=== PATIENT | male | born 1960 | race Caucasian/White ===

== ENCOUNTER → 2018-04-10 | Outpatient (CLI) | payer OTHER ==
[~2018-04-10] MED LIST: RT-ALBUTEROL SULF 2.5 MG/3 ML PRE-MIX VIAL INH ONE
--- NOTE | 2018-04-10 12:50 | Diagnostic Imaging Report ---
PROCEDURE: CT chest without contrast. TECHNIQUE: Multiple contiguous axial images were obtained through the chest without the use of intravenous contrast. INDICATION: Shortness of breath. COMPARISON: Study compared to 09/11/2015. FINDING: Air trapping in a symmetrical fashion with features likely owing to COPD are stable chronic findings. There is no bronchiectasis. No blebs, bullous disease or parenchymal cysts. No lung mass or focal infiltrate. There is no pneumonia. No evidence for adenopathy at this noncontrasted exam. No pleural or pericardial effusion. There is nonaneurysmal aortic atherosclerotic calcifications with mild left-sided coronary arterial atherosclerotic plaque. Upper abdomen where visualized, nonacute. The osseous structures are nonacute. IMPRESSION: Chronic emphysematous hyperexpansion of the lungs. No mass, infiltrate or acute pathology. Dictated by: Dictated on workstation # [id number]
== END ==
LOC: RAD 12:18
PROVIDERS: ATTEND Nurse Practitioner Family
DX: J43.9 Emphysema, unspecified (principal); G47.33 Obstructive sleep apnea (adult) (pediatric); Z72.0 Tobacco use
CPT/HCPCS: 71250; 94060; 94726; 94729

== ENCOUNTER → 2018-06-12 | Outpatient (CLI) | payer OTHER | LOC: CARD 08:57 | PROVIDERS: ATTEND Internal Medicine Cardiovascular Disease | DX: I25.10 Atherosclerotic heart disease of native coronary artery without angina pectoris (principal); E78.2 Mixed hyperlipidemia; J43.9 Emphysema, unspecified; R06.00 Dyspnea, unspecified; Z72.0 Tobacco use; I35.0 Nonrheumatic aortic (valve) stenosis | CPT/HCPCS: 93306 ==

== ENCOUNTER → 2018-06-15 | Outpatient (CLI) | payer OTHER ==
[~2018-06-15] MED LIST changes: +CATHETER FLUSH 10 ML SYR IV PRN; -RT-ALBUTEROL SULF 2.5 MG/3 ML PRE-MIX VIAL INH ONE
[2018-06-15 09:40] VITALS: BP 166/74
[2018-06-15 09:45] VITALS: BP 186/86
[2018-06-15 09:49] VITALS: BP 249/103
[2018-06-15 09:50] VITALS: BP 216/78
[2018-06-15 09:52] VITALS: BP 216/78
--- NOTE | 2018-06-16 08:01 | STRESS TEST ---
DATE OF SERVICE: 06/15/2018 EXERCISE MYOVIEW STRESS TEST REPORT INDICATION: Coronary artery disease. REFERRING PHYSICIAN: Dr. Shabana العراقي. Baseline heart rate is 76. Baseline blood pressure is 164/78. Baseline EKG is sinus rhythm with no ischemic changes. In summary, the patient was injected with 10.35 mCi of technetium-99 Myoview and the resting images were obtained. Then, the patient started exercising with a baseline heart rate, blood pressure and EKG mentioned above. The patient was able to exercise for a total of 7 minutes on standard Alvin protocol. She was given a stress dose of 27.8 mCi of technetium-99 Myoview. With the peak stress level, there were minimal nondiagnostic EKG changes. During recovery, heart rate and blood pressure returned to baseline. EKG returned to baseline. Peak blood pressure was 249/103. The resting and stress images were reviewed and compared in the short axis, horizontal long axis and vertical long axis views. Review of the images showed mild decreased uptake involving the mid to apical inferior wall with mild reversibility. SSS is 3, SDS 1 and TID value 1.04. On the gated images, the left ventricle appeared to be normal size with normal contractility. Calculated ejection fraction is 60%. CONCLUSION: 1. Fair exercise tolerance, a total of 7 minutes on standard Alvin protocol, total of 8.5 METS achieving 90% of maximum expected heart rate. 2. Hypertensive response to exercise, returned to baseline during recovery. 3. Mild decreased uptake at the mid to apical inferior wall with subtle reversibility. 4. Normal left ventricular size with normal contractility. Calculated ejection fraction is 60%. Job ID: [id number] DocumentID: [id number] Dictated Date: 06/16/2018 07:45:34 Accident Report Clerk Date: 06/16/2018 08:00:14 Dictated By: KANG JEAN BAPTISTE MD
== END ==
LOC: CARD 07:08
PROVIDERS: ATTEND Internal Medicine Cardiovascular Disease
DX: I25.10 Atherosclerotic heart disease of native coronary artery without angina pectoris (principal); E78.2 Mixed hyperlipidemia; R06.00 Dyspnea, unspecified; J43.9 Emphysema, unspecified; Z72.0 Tobacco use
CPT/HCPCS: 78452; 93017

== ENCOUNTER 2018-07-01 10:36 | Day surgery (SDC) | payer OTHER ==
[2018-07-01] VITALS (11 sets, daily range): BP systolic 118–153; BP diastolic 63–85
[~2018-07-01] VITALS: Ht 177.8 cm; Wt 86.2 kg
--- OUTSIDE RECORDS SUMMARY | 2018-07-01 10:42 | XMS REPORT ---
Author Shabana Bartlett [facility] Address [address] [place] [id number] Care Team Providers Care Software Application Tester Name Role Phone Shabana العراقي PCP Arely Meng PreferredProvider Allergies and Adverse Reactions Name Reaction Notes NO KNOWN DRUG ALLERGIES Plan of Treatment Planned Activity Comments Planned Date Planned Time Plan/Goal Fasting blood glucose measurement 01/29/2016 12:00 AM Bilateral duplex scan of carotid arteries 07/26/2016 12:00 AM Complete blood count (CBC) with differential count 02/18/2017 12:00 AM Comprehensive metabolic panel 02/18/2017 12:00 AM Lipid Blood Profile 02/18/2017 12:00 AM Hemoglobin A1c measurement 02/18/2017 12:00 AM Thyroid stimulating hormone (TSH) measurement 02/18/2017 12:00 AM US RETROPERITONEAL LTD 12/09/2017 12:00 AM US CAROTID DUPLEX COMP/SUSHILA 12/09/2017 12:00 AM Lexiscan Cardiolite 12/09/2017 12:00 AM Medications Active Name Start Date Estimated Completion Date SIG Comments lisinopril-hydrochlorothiazide 20-25 mg oral tablet 08/05/2014 TAKE ONE TABLET BY MOUTH ONCE DAILY simvastatin 80 mg oral tablet 08/08/2014 TAKE ONE TABLET BY MOUTH AT BEDTIME amlodipine 5 mg oral tablet 11/07/2014 TAKE ONE TABLET BY MOUTH EVERY DAY simvastatin 80 mg oral tablet 11/07/2014 TAKE ONE TABLET BY MOUTH AT BEDTIME lisinopril-hydrochlorothiazide 20-25 mg oral tablet 12/07/2014 TAKE ONE TABLET BY MOUTH ONCE DAILY Advair Diskus 250-50 mcg/dose inhalation blister with device 01/10/2015 INHALE ONE DOSE BY MOUTH IN THE MORNING AND ONE IN THE EVENING APPROXIMATELY 12 HOURS APART simvastatin 80 mg oral tablet 05/09/2015 TAKE ONE TABLET BY MOUTH AT BEDTIME lisinopril-hydrochlorothiazide 20-25 mg oral tablet 06/09/2015 TAKE ONE TABLET BY MOUTH ONCE DAILY lisinopril-hydrochlorothiazide 20-25 mg oral tablet 09/11/2015 TAKE ONE TABLET BY MOUTH ONCE DAILY Spiriva Respimat 2.5 mcg/actuation inhalation mist inhale 2 puffs (5 mcg ) by inhalation route once daily at the same time each day Ventolin HFA 90 mcg/actuation inhalation HFA aerosol inhaler Flonase Allergy Relief 50 mcg/actuation nasal spray,suspension inhale 1 spray (50 mcg) in each nostril by intranasal route once daily Advair Diskus 250-50 mcg/dose inhalation blister with device 01/17/2016 INHALE ONE DOSE BY MOUTH IN THE MORNING AND ONE IN THE EVENING APPROXIMATELY 12 HOURS APART potassium chloride 10 mEq oral tablet extended release 08/07/2016 TAKE TWO TABLETS BY MOUTH ONCE DAILY WITH FOOD Advair Diskus 250-50 mcg/dose inhalation blister with device 12/09/20172017 INHALE ONE DOSE BY MOUTH IN THE MORNING AND ONE IN THE EVENING APPROXIMATELY 12 HOURS APART for 30 days amlodipine 5 mg oral tablet 12/09/2017 03/09/2018 TAKE ONE TABLET BY MOUTH ONCE DAILY clopidogrel 75 mg oral tablet 12/09/2017 06/07/2018 TAKE ONE TABLET BY MOUTH ONCE DAILY for 90 days lisinopril-hydrochlorothiazide 20-25 mg oral tablet 12/09/2017 12/04/2018 TAKE ONE TABLET BY MOUTH ONCE DAILY potassium chloride 10 mEq oral tablet extended release 12/09/2017 12/04/2018 TAKE TWO TABLETS BY MOUTH ONCE DAILY WITH FOOD simvastatin 80 mg oral tablet 12/09/2017 12/04/2018 TAKE ONE TABLET BY MOUTH AT BEDTIME Name Start Date Expiration Date SIG Comments Advair Diskus 250-50 mcg/dose inhalation blister with device 03/16/201204/15 INHALE ONE DOSE BY MOUTH TWICE DAILY IN THE MORNING AND EVENING APPROXIMATELY 12 HOURS APART lisinopril-hydrochlorothiazide 20-25 mg oral tablet 09/14/2012 10/14/2012 TAKE ONE TABLET BY MOUTH EVERY DAY Klor-Con M10 10 mEq oral tablet,ER particles/crystals 10/25/2013 10/20/2014 TAKE TWO TABLETS BY MOUTH EVERY DAY WITH FOOD lisinopril-hydrochlorothiazide 20-25 mg oral tablet 11/08/2013 11/03/2014 TAKE ONE TABLET BY MOUTH EVERY DAY simvastatin 80 mg oral tablet 11/12/2013 11/07/2014 TAKE ONE TABLET BY MOUTH AT BEDTIME for 30 days amlodipine 5 mg oral tablet 08/05/2014 11/03/2014 TAKE ONE TABLET BY MOUTH EVERY DAY Advair Diskus 250-50 mcg/dose inhalation blister with device 08/05/20142014 INHALE ONE DOSE BY MOUTH TWICE DAILY IN THE MORNING AND EVENING APPROXIMATELY 12 HOURS APART amlodipine 5 mg oral tablet 01/17/2016 07/15/2016 TAKE ONE TABLET BY MOUTH EVERY DAY for 90 days Klor-Con M10 10 mEq oral tablet,ER particles/crystals 01/17/2016 01/11/2017 TAKE TWO TABLETS BY MOUTH ONCE DAILY WITH FOOD for 90 days montelukast 10 mg oral tablet 08/07/2017 12/05/2017 take 1 tablet (10 mg) by oral route once daily in the evening for 30 days Discontinued Name Start Date Discontinued Date SIG Comments Augmentin 875-125 mg oral tablet 07/11/2010 08/10/2010 take 1 tablet by oral route every 12 hours Voltaren 1 % topical gel 08/10/2010 07/27/2013 apply 4 gram to affected area(s ) by topical route 4 times per day albuterol sulfate 90 mcg/actuation inhalation HFA aerosol inhaler 02/19/2011 07/27/2013 inhale 1 - 2 puffs by inhalation route every 4 hours as needed aspirin 81 mg oral tablet,delayed release (DR/EC) 07/27/2013 02/18/2017 take 1 tablet (81 mg) by oral route once daily Cialis 20 mg oral tablet 07/27/2013 09/08/2014 take 1 tablet (20 mg) by oral route once daily Problem List Description Status Onset Erectile Dysfunction Active 02/02/10 Hyperlipidemia Active Hypertension, Benign Essential Active Chronic Obstructive Pulmonary Disease Active 02/19/2011 Obstructive Sleep Apnea Active 07/27/2013 Vital Signs Date Time BP-Sys(mm[Hg] BP-Kristy(mm[Hg]) HR(bpm) RR(rpm) Temp WT HT HC BMI BSA BMI Percentile O2 Sat(%) 12/09/2017 3:14:00 PM 128 mmHg 72 mmHg 82 bpm 16 rpm 98.4 F 189.125 lbs 70 in 27.1363 kg/m 2.0584 m 96 % 08/21/2017 4:10:00 PM 124 mmHg 70 mmHg 78 bpm 16 rpm 98.4 F 183.5 lbs 70 in 26.33 kg/m2 2.03 m2 94 % 07/09/2017 3:59:00 PM 130 mmHg 70 mmHg 83 bpm 16 rpm 97.2 F 185 lbs 70 in 26.54 kg/m2 2.04 m2 95 % 02/18/2017 3:59:00 PM 124 mmHg 84 mmHg 88 bpm 16 rpm 98.3 F 186.5 lbs 70 in 26.7597 kg/m 2.044 m 95 % 08/19/2016 3:58:00 PM 128 mmHg 60 mmHg 85 bpm 16 rpm 99.9 F 188.5 lbs 70 in 27.05 kg/m2 2.05 m2 95 % 07/24/2016 1:26:00 PM 124 mmHg 66 mmHg 78 bpm 18 rpm 97.8 F 188.375 lbs 70 in 27.0287 kg/m 2.0543 m 97 % 01/17/2016 3:39:00 PM 136 mmHg 82 mmHg 80 bpm 18 rpm 98.6 F 168 lbs 70 in 24.11 kg/m2 1.94 m2 96 % 08/11/2015 9:23:00 AM 139 mmHg 82 mmHg 71 bpm 18 rpm 97.6 F 178.5 lbs 70 in 25.6118 kg/m 1.9997 m 97 % 04/13/2015 3:22:00 PM 118 mmHg 70 mmHg 72 bpm 98.4 F 179.375 lbs 70 in 25.74 kg/m2 2.00 m2 98 % 09/08/2014 3:47:00 PM 130 mmHg 72 mmHg 76 bpm 98.1 F 177.5 lbs 70 in 25.4683 kg/m 1.9941 m 97 % 02/23/2014 11:33:00 AM 125 mmHg 70 mmHg 80 bpm 18 rpm 97.7 F 181 lbs 70 in 25.97 kg/m2 2.01 m2 98 % 07/27/2013 2:48:00 PM 130 mmHg 72 mmHg 88 bpm 20 rpm 97.9 F 183.4 lbs 70 in 26.3149 kg/m 2.027 m 98 % 02/10/2013 3:59:00 PM 158 mmHg 100 mmHg 87 bpm 16 rpm 97.6 F 187.375 lbs 70 in 26.89 kg/m2 2.05 m2 97 % 12/03/2011 3:08:00 PM 152 mmHg 82 mmHg 12/03/2011 2:57:00 PM 144 mmHg 100 mmHg 88 bpm 16 rpm 98.3 F 200.25 lbs 98 % 02/19/2011 8:42:00 AM 148 mmHg 82 mmHg 78 bpm 16 rpm 97.3 F 205.375 lbs 98 % 02/07/2011 3:33:00 PM 140 mmHg 72 mmHg 87 bpm 16 rpm 97.3 F 207 lbs 70 in 29.7011 kg/m 2.1534 m 97 % 08/10/2010 3:53:00 PM 122 mmHg 70 mmHg 75 bpm 16 rpm 98 F 199.5 lbs 70 in 28.62 kg/m2 2.11 m2 97 % 02/02/2010 4:03:00 PM 130 mmHg 70 mmHg 70 bpm 16 rpm 97.5 F 194.375 lbs 70 in 27.8896 kg/m 2.0867 m 97 % 07/25/2009 4:21:00 PM 120 mmHg 70 mmHg 81 bpm 16 rpm 97.2 F 199.375 lbs 70 in 28.61 kg/m2 2.11 m2 97 % Social History Name Description Comments Tobacco Current every day smoker denies alcohol use Denies illicit substance abuse Smoker 1 1/2 pk / day History of Procedures Date Ordered Description Order Status 04/10/2015 12:00 AM COMPLETE CBC W/AUTO DIFF WBC Reviewed 04/10/2015 12:00 AM COMPREHEN METABOLIC PANEL Reviewed 04/10/2015 12:00 AM LIPID PANEL Reviewed 02/07/2011 12:00 AM COMPREHEN METABOLIC PANEL Reviewed 02/07/2011 12:00 AM LIPID PANEL Reviewed 02/07/2011 12:00 AM Prostate Cancer Screening PSA Reviewed 02/19/2011 12:00 AM IMMUNIZATION ADMIN Reviewed 02/19/2011 12:00 AM PNEUMOCOCCAL VACC 23 KAREN IM Reviewed 08/11/2015 9:41 AM URINALYSIS AUTO W/O SCOPE Reviewed 05/28/2011 12:00 AM COMPLETE CBC W/AUTO DIFF WBC Reviewed 05/28/2011 12:00 AM COMPREHEN METABOLIC PANEL Reviewed 05/28/2011 12:00 AM LIPID PANEL Reviewed 01/29/2016 12:00 AM GLYCOSYLATED HEMOGLOBIN TEST Returned 01/17/2016 12:00 AM COMPLETE CBC W/AUTO DIFF WBC Returned 01/17/2016 12:00 AM COMPREHEN METABOLIC PANEL Returned 01/17/2016 12:00 AM LIPID PANEL Returned 07/24/2016 2:39 PM URINALYSIS AUTO W/O SCOPE Reviewed 07/26/2016 12:00 AM URNLS DIP STICK/TABLET REAGENT AUTO MICROSCOPY Returned 07/26/2016 12:00 AM COMPREHEN METABOLIC PANEL Returned 07/26/2016 12:00 AM COMPLETE CBC W/AUTO DIFF WBC Returned 07/26/2016 12:00 AM LIPID PANEL Returned 11/26/2011 12:00 AM COMPLETE CBC W/AUTO DIFF WBC Reviewed 11/26/2011 12:00 AM COMPREHEN METABOLIC PANEL Reviewed 11/26/2011 12:00 AM LIPID PANEL Reviewed 12/03/2011 12:00 AM COMPREHEN METABOLIC PANEL Reviewed 12/03/2011 12:00 AM LIPID PANEL Reviewed 12/03/2011 12:00 AM COMPLETE CBC W/AUTO DIFF WBC Reviewed 12/03/2011 12:00 AM Prostate Cancer Screening PSA Reviewed 01/25/2010 12:00 AM COMPREHEN METABOLIC PANEL Reviewed 01/25/2010 12:00 AM LIPID PANEL Reviewed 07/21/2017 3:53 PM URINALYSIS AUTO W/O SCOPE Reviewed 07/09/2017 12:00 AM DOT Physical w UA Reviewed 02/10/2013 12:00 AM CHEST X-RAY 2VW FRONTAL&LATL Reviewed 08/03/2010 12:00 AM COMPREHEN METABOLIC PANEL Reviewed 08/03/2010 12:00 AM LIPID PANEL Reviewed 08/03/2010 12:00 AM Prostate Cancer Screening PSA Reviewed 02/18/2014 12:00 AM COMPLETE CBC W/AUTO DIFF WBC Reviewed 02/18/2014 12:00 AM COMPREHEN METABOLIC PANEL Reviewed 02/18/2014 12:00 AM LIPID PANEL Reviewed 02/09/2011 12:00 AM COMPREHEN METABOLIC PANEL Reviewed 02/09/2011 12:00 AM LIPID PANEL Reviewed Results Summary Date and Description Results 05/09/2008 12:00 AM PSA SerPl-mCnc 1.30 ng/mL 07/15/2009 12:00 AM Cholest Cry Stone Ql IR 113.0 %LDLc SerPl-mCnc 31.0 mg/ dLHDLc SerPl-mCnc 31.0 mg/dLTrigl SerPl-mCnc 84.0 mg/dLGlucose SerPl-mCnc 114.0 mg/dLHIV1+2 Ab Ser Ql no risk Depression Done Aspirin reccommended Reccommended Cholest Cry Stone Ql IR 113.0 %LDLc SerPl-mCnc 62.0 mg/dLGlucose SerPl-mCnc 114.0 mg/dL 07/25/2009 4:33 PM HIV1+2 Ab Ser Ql no risk Depression Done 07/25/2009 4:34 PM Colonoscopy-Women and Men over 50 Declined Digital Rectal Exam Refused 01/17/2010 12:00 AM Cholest Cry Stone Ql IR 108.0 %LDLc SerPl-mCnc 58.0 mg/ dLGlucose SerPl-mCnc 114.0 mg/dL 01/17/2010 6:00 AM TRIGLYCERIDES 105.0 mg/dLCHOLESTEROL 108.0 mg/dLHDL 29.0 mg/ dLTOT CHOL/HDL 3.7 LDL (CALC) 58.0 mg/dLGLUCOSE 114.0 mg/dLSODIUM 141.0 mmol/ LPOTASSIUM 4.20 mmol/LCHLORIDE 106.0 mmol/LCO2 27.0 mmol/LBUN 19.0 mg/ dLCREATININE 1.20 mg/dLSGOT/AST 19.0 IU/LSGPT/ALT 20.0 IU/LALK PHOS 125.0 IU/ LTOTAL PROTEIN 7.10 g/dLALBUMIN 4.10 g/dLTOTAL BILI 0.30 mg/dLCALCIUM 9.60 mg/ dLAGE 50 GFR NonAA 64 GFR AA 78 eGFR >60 mL/min/1.73 m2eGFR AA* >60 02/02/2010 4:23 PM PSA SerPl-mCnc 0.0 ng/mL 08/04/2010 12:00 AM Cholest Cry Stone Ql IR 121.0 %LDLc SerPl-mCnc 68.0 mg/ dLGlucose SerPl-mCnc 107.0 mg/dL 08/04/2010 8:10 AM TRIGLYCERIDES 105.0 mg/dLCHOLESTEROL 121.0 mg/dLHDL 32.0 mg/ dLTOT CHOL/HDL 3.8 LDL (CALC) 68.0 mg/dLPSA TOTAL 1.660 ng/mLGLUCOSE 107.0 mg/ dLSODIUM 141.0 mmol/LPOTASSIUM 4.0 mmol/LCHLORIDE 104.0 mmol/LCO2 29.0 mmol/ LBUN 19.0 mg/dLCREATININE 1.10 mg/dLSGOT/AST 19.0 IU/LSGPT/ALT 20.0 IU/LALK PHOS 117.0 IU/LTOTAL PROTEIN 7.20 g/dLALBUMIN 4.30 g/dLTOTAL BILI 0.50 mg/ dLCALCIUM 9.90 mg/dLAGE 50 GFR NonAA 71 GFR AA 86 eGFR >60 mL/min/1.73 m2eGFR AA * >60 08/10/2010 3:57 PM Abdominal Aortic Aneurysm Refused 08/10/2010 3:58 PM Colonoscopy-Women and Men over 50 ordered 08/10/2010 3:58 PM Digital Rectal Exam Refused 02/02/2011 9:05 AM TRIGLYCERIDES 106.0 mg/dLCHOLESTEROL 137.0 mg/dLHDL 31.0 mg/ dLTOT CHOL/HDL 4.4 LDL (CALC) 85.0 mg/dL 05/29/2011 10:45 AM WBC 6.5 RBC 5.12 HGB 16.20 g/dLHCT 46.70 %MCV 91.0 fLMCH 31.60 pgMCHC 34.70 g/dLRDW SD 44 RDW CV 13.0 %MPV 9.90 fLPLT 219 NRBC# 0.00 NRBC % 0.0 %NEUT 59.0 %%LYMP 31.10 %%MONO 4.80 %%EOS 4.80 %%BASO 0.30 %#NEUT 3.85 # LYMP 2.03 #MONO 0.31 #EOS 0.31 #BASO 0.02 MANUAL DIFF NOT IND GLUCOSE 95.0 mg/ dLSODIUM 140.0 mmol/LPOTASSIUM 4.30 mmol/LCHLORIDE 105.0 mmol/LCO2 28.0 mmol/ LBUN 22.0 mg/dLCREATININE 1.10 mg/dLSGOT/AST 26.0 IU/LSGPT/ALT 46.0 IU/LALK PHOS 122.0 IU/LTOTAL PROTEIN 7.30 g/dLALBUMIN 4.60 g/dLTOTAL BILI 0.50 mg/ dLCALCIUM 9.80 mg/dLAGE 50 GFR NonAA 71 GFR AA 86 eGFR >60 mL/min/1.73 m2eGFR AA * >60 TRIGLYCERIDES 164.0 mg/dLCHOLESTEROL 125.0 mg/dLHDL 26.0 mg/dLTOT CHOL/ HDL 4.8 LDL (CALC) 66.0 mg/dL 11/26/2011 8:25 AM WBC 6.4 RBC 4.95 HGB 15.70 g/dLHCT 44.80 %MCV 91.0 fLH 31.70 pgMCHC 35.0 g/dLRDW SD 43 RDW CV 13.10 %MPV 9.70 fLPLT 209 NRBC# 0.00 NRBC % 0.0 %NEUT 65.50 %%LYMP 23.50 %%MONO 5.0 %%EOS 5.50 %%BASO 0.50 %#NEUT 4.18 # LYMP 1.50 #MONO 0.32 #EOS 0.35 #BASO 0.03 MANUAL DIFF NOT IND GLUCOSE 115.0 mg/ dLSODIUM 141.0 mmol/LPOTASSIUM 4.10 mmol/LCHLORIDE 108.0 mmol/LCO2 26.0 mmol/ LBUN 20.0 mg/dLCREATININE 1.20 mg/dLSGOT/AST 21.0 IU/LSGPT/ALT 31.0 IU/LALK PHOS 127.0 IU/LTOTAL PROTEIN 7.0 g/dLALBUMIN 4.40 g/dLTOTAL BILI 0.40 mg/ dLCALCIUM 9.80 mg/dLAGE 51 GFR NonAA 64 GFR AA 78 eGFR 60 eGFR AA* 60 TRIGLYCERIDES 62.0 mg/dLCHOLESTEROL 108.0 mg/dLHDL 31.0 mg/dLTOT CHOL/HDL 3.5 LDL (CALC) 65.0 mg/dL 02/07/2013 5:55 AM WBC 8.3 RBC 4.61 HGB 14.50 g/dLHCT 42.30 %MCV 92.0 fLMCH 31.50 pgMCHC 34.30 g/dLRDW SD 45 RDW CV 13.60 %MPV 9.30 fLPLT 222 NRBC# 0.00 NRBC% 0.0 %NEUT 66.80 %%LYMP 20.40 %%MONO 6.90 %%EOS 5.30 %%BASO 0.60 %#NEUT 5.52 #LYMP 1.69 #MONO 0.57 #EOS 0.44 #BASO 0.05 MANUAL DIFF NOT IND GLUCOSE 118.0 mg/dLSODIUM 146.0 mmol/LPOTASSIUM 3.90 mmol/LCHLORIDE 113.0 mmol/LCO2 24.0 mmol/LBUN 19.0 mg/dLCREATININE 1.10 mg/dLSGOT/AST 21.0 IU/LSGPT/ALT 18.0 IU /LALK PHOS 153.0 IU/LTOTAL PROTEIN 6.90 g/dLALBUMIN 4.0 g/dLTOTAL BILI 0.20 mg/ dLCALCIUM 10.10 mg/dLAGE 52 GFR NonAA 70 GFR AA 85 eGFR >60 mL/min/1.73 m2eGFR AA* >60 TRIGLYCERIDES 155.0 mg/dLCHOLESTEROL 109.0 mg/dLHDL 33.0 mg/dLTOT CHOL/ HDL 3.3 LDL (CALC) 45.0 mg/dLPSA TOTAL 2.460 ng/mL 03/02/2014 8:25 AM WBC 7.2 RBC 4.68 HGB 15.40 g/dLHCT 43.90 %MCV 94.0 fLMCH 32.90 pgMCHC 35.10 g/dLRDW SD 48 MPV 8.30 fLPLT 281 %NEUT 66.30 %%LYMP 27.10 %% MIXED 6.60 #NEUT 4.70 #LYMP 2.00 #MIXED 0.50 MANUAL DIFF NOT IND GLUCOSE 118.0 mg/dLSODIUM 140.0 mmol/LPOTASSIUM 4.0 mmol/LCHLORIDE 105.0 mmol/LCO2 26.0 mmol/ LBUN 18.0 mg/dLCREATININE 1.10 mg/dLSGOT/AST 30.0 IU/LSGPT/ALT 29.0 IU/LALK PHOS 110.0 IU/LTOTAL PROTEIN 7.70 g/dLALBUMIN 4.30 g/dLTOTAL BILI 0.40 mg/ dLCALCIUM 10.30 mg/dLAGE 53 GFR NonAA 70 GFR AA 85 eGFR 60 eGFR AA* 60 TRIGLYCERIDES 65.0 mg/dLCHOLESTEROL 118.0 mg/dLHDL 40.0 mg/dLTOT CHOL/HDL 3.0 LDL (CALC) 65.0 mg/dL 04/11/2015 5:15 AM GLUCOSE 114.0 mg/dLSODIUM 139.0 mmol/LPOTASSIUM 3.40 mmol/ LCHLORIDE 103.0 mmol/LCO2 26.0 mmol/LBUN 20.0 mg/dLCREATININE 1.10 mg/dLSGOT/ AST 31.0 IU/LSGPT/ALT 27.0 IU/LALK PHOS 122.0 IU/LTOTAL PROTEIN 7.0 g/dLALBUMIN 4.10 g/dLTOTAL BILI 0.30 mg/dLCALCIUM 9.80 mg/dLAGE 54 GFR NonAA 69 GFR AA 84 eGFR >60 mL/min/1.73meGFR AA* >60 WBC 8.6 RBC 4.70 HGB 15.0 g/dLHCT 44.10 % MCV 94.0 fLMCH 31.90 pgMCHC 34.0 g/dLRDW SD 46 RDW CV 13.30 %MPV 9.30 fLPLT 246 NRBC# 0.00 NRBC% 0.0 %NEUT 69.80 %%LYMP 18.10 %%MONO 8.20 %%EOS 3.70 %%BASO 0.20 %#NEUT 6.01 #LYMP 1.56 #MONO 0.71 #EOS 0.32 #BASO 0.02 MANUAL DIFF NOT IND TRIGLYCERIDES 81.0 mg/dLCHOLESTEROL 98.0 mg/dLHDL 29.0 mg/dLTOT CHOL/HDL 3.4 LDL (CALC) 53.0 mg/dL 08/11/2015 9:41 AM Clarity Ur CLEAR Color Ur YELLOW Glucose Ur-sCnc NEGATIVE Bilirub Ur Ql Strip NEGATIVE Ketones Ur Ql Strip NEGATIVE Sp Gr Ur Qn 1.015 Hgb Ur Ql Strip NEGATIVE pH Ur-LsCnc 6.5 Prot Ur Ql Strip NEGATIVE Urobilinogen Ur- mCnc 0.2 Nitrite Ur Ql Strip NEGATIVE WBC Est Ur Ql Strip NEGATI VE 07/24/2016 2:39 PM Clarity Ur clear Color Ur light yellow Glucose Ur-sCnc neg Bilirub Ur Ql Strip neg Ketones Ur Ql Strip neg Sp Gr Ur Qn 1.020 Hgb Ur Ql Strip neg pH Ur-LsCnc 5.5 Prot Ur Ql Strip 30mg/dl Urobilinogen Ur-mCnc 0.2eu/ dl Nitrite Ur Ql Strip neg WBC Est Ur Ql Strip small 07/09/2017 3:53 PM Urine-Color yellow Glucose Ur-sCnc neg Sp Gr Ur Qn 1.030 Hgb Ur Ql Strip neg Prot Ur Ql Strip neg History Of Immunizations Name Date Admin Mfg Name Mfg Code Trade Name Lot# Route Inj Vis Given Vis Pub CVX Pneumococcal 02/19/2011 [employer] MSD PNEUMOVAX 23 [id number] Intramuscular Left Deltoid 02/19/2011 08/11/2009 133 History of Past Illness Name Date of Onset Comments Hypertension, Benign Essential Hyperlipidemia Erectile Dysfunction 02/02/10 Benign Essential Hypertension Jul 25 2009 4:40PM Hyperlipidemia Jul 25 2009 4:40PM Chronic Obstructive Pulmonary Disease 02/19/2011 Obstructive Sleep Apnea 07/27/2013 Hyperlipidemia Feb 02 2010 3:59PM Hypertension, Benign Essential Feb 02 2010 3:59PM Erectile dysfunction Feb 02 2010 3:59PM Prostate screening Feb 02 2010 3:59PM Hyperlipidemia Aug 10 2010 3:55PM Hypertension, Benign Essential Aug 10 2010 3:55PM Erectile dysfunction Aug 10 2010 3:55PM Prostate screening Aug 10 2010 3:55PM Hyperlipidemia Feb 07 2011 3:31PM Hypertension, Benign Essential Feb 07 2011 3:31PM Erectile dysfunction Feb 07 2011 3:31PM Prostate screening Feb 07 2011 3:31PM Shortness Of Breath Feb 07 2011 3:31PM Hyperlipidemia Feb 19 2011 8:39AM Hypertension, Benign Essential Feb 19 2011 8:39AM Erectile dysfunction Feb 19 2011 8:39AM Prostate screening Feb 19 2011 8:39AM Shortness Of Breath Feb 19 2011 8:39AM Pneumococcus Feb 19 2011 9:37AM Chronic Obstructive Pulmonary Disease Feb 19 2011 8:39AM Hypertension May 28 2011 10:11AM Hyperlipidemia May 28 2011 10:11AM Hypertension Nov 26 2011 8:13AM Hyperlipidemia Nov 26 2011 8:13AM Hyperlipidemia Dec 03 2011 2:59PM Hypertension, Benign Essential Dec 03 2011 2:59PM Chronic Obstructive Pulmonary Disease Dec 03 2011 2:59PM Prostate screening Dec 03 2011 2:59PM Hyperlipidemia Feb 10 2013 4:02PM Hypertension, Benign Essential Feb 10 2013 4:02PM Chronic Obstructive Pulmonary Disease Feb 10 2013 4:02PM Weight Loss Feb 10 2013 4:02PM Tobacco Abuse Feb 10 2013 4:02PM Cough Feb 10 2013 4:02PM Chronic Obstructive Pulmonary Disease Jul 27 2013 2:52PM Erectile dysfunction Jul 27 2013 2:52PM Hyperlipidemia Jul 27 2013 2:52PM Hypertension, Benign Essential Jul 27 2013 2:52PM Dry skin Jul 27 2013 2:52PM Obstructive Sleep Apnea Jul 27 2013 2:52PM Hypertension Feb 18 2014 8:40AM Hyperlipidemia Feb 18 2014 8:40AM Hyperlipidemia, Mixed Feb 23 2014 11:41AM Hypertension Feb 23 2014 11:41AM Headache Feb 23 2014 11:41AM AJ (obstructive sleep apnea) Feb 23 2014 11:41AM Verruca seborrheica Sep 08 2014 3:53PM Chronic obstructive pulmonary disease Sep 08 2014 3:53PM Erectile Dysfunction Sep 08 2014 3:53PM Hyperlipidemia Sep 08 2014 3:53PM Hypertension, Benign Essential Sep 08 2014 3:53PM Hypertension Apr 10 2015 11:15AM Hyperlipidemia, unspecified Apr 10 2015 11:15AM Viral respiratory illness Apr 13 2015 3:26PM Chronic obstructive pulmonary disease with acute lower respiratory infection Apr 13 2015 3:26PM Erectile Dysfunction Apr 13 2015 3:26PM Hyperlipidemia Apr 13 2015 3:26PM Hypertension, Benign Essential Apr 13 2015 3:26PM Hypokalemia Apr 13 2015 3:26PM Encounter for CDL (commercial driving license) exam Aug 11 2015 9:41AM Hyperlipidemia, Mixed Jan 17 2016 3:53PM Hypertension Jan 17 2016 3:53PM Elevated glucose Jan 29 2016 9:49AM Encounter for Department of Transportation (DOT) examination for driving license renewal Jul 24 2016 1:28PM Carotid bruit Jul 26 2016 8:20AM Hypertension Jul 26 2016 8:20AM Hyperlipemia Jul 26 2016 8:20AM Proteinuria Jul 26 2016 8:20AM Bruit of left carotid artery Jul 24 2016 1:28PM PVD (peripheral vascular disease) Aug 19 2016 4:01PM Hyperlipidemia, Mixed Feb 18 2017 4:02PM Hypertension Feb 18 2017 4:02PM Carotid stenosis Feb 18 2017 4:02PM Venous insufficiency Feb 18 2017 4:02PM Elevated fasting glucose Feb 18 2017 4:02PM Encounter for CDL (commercial driving license) exam Jul 09 2017 4:01PM Well adult exam Aug 21 2017 4:14PM Carotid artery stenosis Dec 09 2017 3:24PM COPD (chronic obstructive pulmonary disease) Dec 09 2017 3:24PM Tobacco abuse Dec 09 2017 3:24PM Hyperlipemia Dec 09 2017 3:24PM Essential hypertension Dec 09 2017 3:24PM Sebaceous cyst Dec 09 2017 3:24PM Migraines Dec 09 2017 3:24PM Tobacco use Dec 09 2017 5:03PM SOB (shortness of breath) Dec 09 2017 5:03PM COPD (chronic obstructive pulmonary disease) Dec 09 2017 5:03PM Arterial disease Dec 09 2017 5:03PM Carotid stenosis Dec 09 2017 5:03PM Payers Insurance Name Company Name Plan Name Plan Number Policy Number Policy Group Number Start Date Cigdilcia Cigdilcia [id number] N/A [facility] [id number] N/A [employer]ign[employer] Cigna [id number] N/A [employer] [id number] N/A Preferred Health Care [facility] [id number] April AHA/[employer] AHA/ [employer] [id number] Wednesday, April 28, 2010 [facility] [id number] N/A Cigna Cigna [id number] N/A History of Encounters Visit Date Visit Type Provider 12/09/[address] Shabana العراقي DO 08/21/2017 Office visit Arely Meng MD 07/09/2017 Office visit Tu Denney SERVICE DELIVERY SUPERVISOR 02/18/2017 Office visit Arely Meng MD 08/19/2016 Office visit Arely Meng MD 07/24/2016 Voided Arely Meng MD 07/24/2016 Office visit Alexandra Rodriguez SERVICE DELIVERY SUPERVISOR 01/17/2016 Office visit Arely Meng MD 08/11/2015 Office visit Alexandra Rodriguez SERVICE DELIVERY SUPERVISOR 04/13/2015 Office visit Arely Meng MD 09/08/2014 Office visit Arely Meng MD 02/23/2014 Office visit Arely Meng MD 07/27/2013 Office visit Arely Meng MD 02/10/2013 Office visit Lisa Helms MD 12/03/2011 Office visit Lisa Helms MD 02/19/2011 Office visit Lisa Helms MD 02/07/2011 Office visit Lisa Helms MD 08/10/2010 Office visit Ten Goodwin DO 02/02/2010 Office visit Ten Goodwin DO 07/25/2009 Office visit Ten Goodwin DO 03/10/2009 Office visit Ten Goodwin DO 01/24/2009 Office visit Ten Goodwin DO 01/14/2009 Laboratory Ten Goodwin DO
--- OUTSIDE RECORDS SUMMARY | 2018-07-01 10:43 | XMS REPORT ---
Author Author Arely Meng Organization [facility] Address [address] [place], [place] [id number] Care Team Providers Care Court Collections Officer Name Role Phone Arely Meng PCP Arely Meng PreferredProvider Allergies and Adverse Reactions Name Reaction Notes NO KNOWN DRUG ALLERGIES Plan of Treatment Planned Activity Comments Planned Date Planned Time Plan/Goal Fasting blood glucose measurement 01/29/2016 12:00 AM Medications Active Name Start Date [...] HFA 90 mcg/actuation inhalation HFA aerosol inhaler montelukast 10 mg oral tablet take 1 tablet (10 mg) by oral route once daily in the evening Flonase Allergy Relief 50 mcg/actuation nasal spray,suspension inhale 1 spray (50 mcg) in each nostril by intranasal route once daily amlodipine 5 mg oral tablet 01/17/2016 07/15/2016 TAKE ONE TABLET BY MOUTH EVERY DAY for 90 days Klor-Con M10 10 mEq oral tablet,ER particles/crystals 01/17/2016 01/11/2017 TAKE TWO TABLETS BY MOUTH ONCE DAILY WITH FOOD for 90 days lisinopril-hydrochlorothiazide 20-25 mg oral tablet 01/17/2016 07/10/2017 TAKE ONE TABLET BY MOUTH ONCE DAILY for 90 days simvastatin 80 mg oral tablet 01/17/2016 01/11/2017 TAKE ONE TABLET BY MOUTH AT BEDTIME for 90 days Advair Diskus 250-50 mcg/dose inhalation blister with device 01/17/2016 INHALE ONE DOSE BY MOUTH IN THE MORNING AND ONE IN THE EVENING APPROXIMATELY 12 HOURS APART Name Start Date Expiration Date SIG Comments Advair Diskus 250-50 mcg/dose inhalation blister with device 03/16/201204/15 INHALE ONE DOSE BY MOUTH TWICE DAILY IN THE MORNING AND EVENING APPROXIMATELY 12 HOURS APART lisinopril-hydrochlorothiazide 20-25 mg oral tablet 09/14/2012 10/14/2012 TAKE ONE TABLET BY MOUTH EVERY DAY aspirin 81 mg oral tablet,delayed release (DR/EC) 07/27/2013 07/22/2014 take 1 tablet (81 mg) by oral route once daily Klor-Con M10 10 mEq oral tablet,ER particles/crystals [...] MORNING AND EVENING APPROXIMATELY 12 HOURS APART Discontinued Name Start Date Discontinued Date SIG [...] inhalation route every 4 hours as needed Cialis 20 mg oral tablet 07/27/2013 09/08/2014 take 1 tablet (20 mg) by oral route once daily Problem List Description Status Onset Erectile Dysfunction Active 02/02/10 Hyperlipidemia Active Hypertension, Benign Essential Active Chronic Obstructive Pulmonary Disease Active 02/19/2011 Obstructive Sleep Apnea Active 07/27/2013 Vital Signs Date Time BP-Sys(mm[Hg] BP-Kristy(mm[Hg]) HR(bpm) RR(rpm) Temp WT HT HC BMI BSA BMI Percentile O2 Sat(%) 01/17/2016 3:39:00 PM 136 mmHg 82 mmHg [...] rpm 97.3 F 207 lbs 70 in 29.70 kg/m2 2.15 m2 97 % 08/10/2010 3:53:00 PM 122 mmHg 70 mmHg 75 bpm 16 rpm 98 F 199.5 lbs 70 in 28.625 kg/m 2.1141 m 97 % 02/02/2010 4:03:00 PM 130 mmHg 70 mmHg 70 bpm 16 rpm 97.5 F 194.375 lbs 70 in 27.89 kg/m2 2.09 m2 97 % 07/25/2009 4:21:00 PM 120 mmHg 70 mmHg 81 bpm 16 rpm 97.2 F 199.375 lbs 70 in 28.607 kg/m 2.1134 m 97 % Social History Name Description Comments [...] Returned 01/17/2016 12:00 AM LIPID PANEL Returned 11/26/2011 12:00 [...] Reviewed 01/25/2010 12:00 AM LIPID PANEL Reviewed 02/10/2013 12:00 AM CHEST X-RAY 2VW [...] 12:00 AM LIPID PANEL Reviewed Results Summary Data and Description Results 05/09/2008 12:00 AM PSA SerPl-mCnc 1.30 ng/mL 07/15/2009 12:00 AM Cholest Cry Stone Ql IR 113.0 %LDLc SerPl-mCnc 31.0 mg/ dLHDLc SerPl-mCnc 31.0 mg/dLTrigl SerPl-mCnc 84.0 mg/dLGlucose SerPl-mCnc 114.0 mg/dLHIV1+2 Ab Ser Ql no risk Depression Done Aspirin reccommended Reccommended Cholest Cry Stone Ql IR 113.0 %LDLc SerPl-mCnc 62.0 mg/dLGlucose SerPl-mCnc 114.0 mg/dL 07/15/2009 9:26 AM TRIGLYCERIDES 84.0 mg/dLCHOLESTEROL 113.0 mg/dLHDL 31.0 mg/ dLTOT CHOL/HDL 3.6 LDL 62.0 mg/dLGLUCOSE 114.0 mg/dLSODIUM 140.0 mmol/ LPOTASSIUM 4.60 mmol/LCHLORIDE 103.0 mmol/LCO2 30.0 mmol/LBUN 16.0 mg/ dLCREATININE 1.20 mg/dLSGOT/AST 22.0 IU/LSGPT/ALT 23.0 IU/LALK PHOS 116.0 IU/ LTOTAL PROTEIN 7.80 g/dLALBUMIN 4.50 g/dLTOTAL BILI 0.40 mg/dLCALCIUM 10.50 mg/ dLAGE 49 GFR NonAA 64 GFR AA 78 eGFR >60 mL/min/1.73 m2eGFR AA* >60 07/25/2009 4:33 PM HIV1+2 Ab Ser Ql [...] 4.95 HGB 15.70 g/dLHCT 44.80 %MCV 91.0 fLMCH 31.70 pgMCHC 35.0 g/dLRDW SD 43 RDW [...] WBC Est Ur Ql Strip NEGATI VE 01/26/2016 5:40 AM TRIGLYCERIDES 274.0 mg/dLCHOLESTEROL 122.0 mg/dLHDL 36.0 mg/ dLTOT CHOL/HDL 3.4 LDL (CALC) 31.0 mg/dLGLUCOSE 135.0 mg/dLSODIUM 140.0 mmol/ LPOTASSIUM 4.20 mmol/LCHLORIDE 106.0 mmol/LCO2 22.0 mmol/LBUN 19.0 mg/ dLCREATININE 1.20 mg/dLSGOT/AST 26.0 IU/LSGPT/ALT 29.0 IU/LALK PHOS 144.0 IU/ LTOTAL PROTEIN 7.50 g/dLALBUMIN 4.30 g/dLTOTAL BILI 0.40 mg/dLCALCIUM 9.70 mg/ dLAGE 56 GFR NonAA 63 GFR AA 76 eGFR >60 mL/min/1.73meGFR AA* >60 WBC 10.2 RBC 5.03 HGB 15.90 g/dLHCT 47.20 %MCV 94.0 fLMCH 31.60 pgMCHC 33.70 g/dLRDW SD 46 RDW CV 13.30 %MPV 8.70 fLPLT 276 NRBC# 0.00 NRBC% 0.0 %NEUT 67.60 %%LYMP 20.20 %%MONO 6.50 %%EOS 5.0 %%BASO 0.50 %#NEUT 6.91 #LYMP 2.07 #MONO 0.67 #EOS 0.51 #BASO 0.05 MANUAL DIFF NOT IND 02/03/2016 6:14 AM GLUCOSE 111.0 mg/dLHGB A1C 5.50 %Est Avg Glucose 111.2 mg/dL History Of Immunizations Name Date Admin Mfg Name Mfg Code Trade Name Lot# Route Inj Vis Given Vis Pub CVX Pneumococcal 02/19/2011 [employer] MSD Pneumovax 23 [id number] Intramuscular Left Deltoid 02/19/2011 08/11/2009 [...] 3:53PM Elevated glucose Jan 29 2016 9:49AM Payers Insurance Name Company Name Plan Name Plan Number Policy Number Policy Group Number Start Date Melida Montez [id number] N/A Preferred Health Care [facility] [id number] April AHA/[facility] AHA/ [facility] [id number] Wednesday, 2010 [facility] [id number] N/A Cigna Cigna [id number] N/A Cigna Cigna [id number] N/A [facility] Occupational Medicine [id number] N/A History of Encounters Visit Date Visit Type Provider 01/17/2016 Office visit Arely Meng MD 08/11/2015 Office visit Alexandra Rodriguez APRN 04/13/2015 Office visit Arely Meng MD 09/08/2014 [...]
--- OUTSIDE RECORDS SUMMARY | 2018-07-01 10:43 | XMS REPORT ---
Author Shabana Bartlett [facility] Address [address] [place], [place] [id number] Care Team Providers Care Employee Relations Director Name Role Phone Shabana العراقي PCP JilArely galeas PreferredProvider Allergies and Adverse Reactions Name Reaction [...] stimulating hormone (TSH) measurement 02/18/2017 12:00 AM Medications Active Name Start Date [...] 2017 3:24PM Migraines Dec 09 2017 3:24PM Payers Insurance Name Company Name Plan Name Plan Number Policy Number Policy Group Number Start Date Cigdilcia Montez [id number] N/A [facility] Med Occupational Medicine [id number] N/A Cigna Cigna [id number] N/A [employer] [id number] N/A Preferred Health Care [facility] [id number] April AHA/[facility] AHA/ [facility] [id number] Wednesday, April 28, 2010 [facility] [id number] N/A Cigdilcia Montez [id number] N/A History of Encounters Visit Date Visit Type Provider 12/09/[address] Shabana العراقي DO 08/21/2017 Office visit Arely Meng MD 07/09/2017 Office visit Tu Denney DIRECTOR OF STUDENT AFFAIRS 02/18/2017 Office visit rAely Meng MD 08/19/2016 Office visit Arely Meng MD 07/24/2016 Voided Arely Meng MD 07/24/2016 Office visit Alexandra Rodriguez DIRECTOR OF STUDENT AFFAIRS 01/17/2016 Office visit Arely Meng MD 08/11/2015 Office visit Alexandra Rodriguez DIRECTOR OF STUDENT AFFAIRS 04/13/2015 Office visit Arely Meng MD 09/08/2014 [...]
--- OUTSIDE RECORDS SUMMARY | 2018-07-01 10:44 | XMS REPORT ---
Author Author Arely Meng Organization [facility] Address [address] [place], [place] [id number] Care Team Providers Care Turnaround Engineer Name Role Phone Arely Meng PCP Arely Meng PreferredProvider Allergies and Adverse Reactions Name Reaction Notes NO KNOWN DRUG ALLERGIES Plan of Treatment Planned Activity Comments Planned Date Planned Time Plan/Goal Fasting blood glucose measurement 01/29/2016 12:00 AM Bilateral duplex scan of carotid arteries 07/26/2016 12:00 AM Medications Active Name Start Date [...] each nostril by intranasal route once daily Klor-Con M10 10 mEq [...] IN THE EVENING APPROXIMATELY 12 HOURS APART Advair Diskus 250-50 mcg/dose inhalation blister with device 07/09/2016 INHALE ONE DOSE BY MOUTH IN THE MORNING AND ONE IN THE EVENING APPROXIMATELY 12 HOURS APART amlodipine 5 mg oral tablet 07/09/2016 TAKE ONE TABLET BY MOUTH ONCE DAILY Name Start Date Expiration Date SIG Comments [...] BY MOUTH EVERY DAY for 90 days Discontinued Name Start Date Discontinued Date [...] HC BMI BSA BMI Percentile O2 Sat(%) 07/24/2016 1:26:00 PM 124 mmHg 66 mmHg 78 bpm 18 rpm 97.8 F 188.375 lbs 70 in 27.03 kg/m2 2.05 m2 97 % 01/17/2016 3:39:00 PM 136 mmHg 82 mmHg 80 bpm 18 rpm 98.6 F 168 lbs 70 in 24.1052 kg/m 1.94 m 96 % 08/11/2015 9:23:00 AM 139 mmHg 82 mmHg 71 bpm 18 rpm 97.6 F 178.5 lbs 70 in 25.61 kg/m2 2.00 m2 97 % 04/13/2015 3:22:00 PM 118 mmHg 70 mmHg 72 bpm 98.4 F 179.375 lbs 70 in 25.7374 kg/m 2.0046 m 98 % 09/08/2014 3:47:00 PM 130 mmHg 72 mmHg 76 bpm 98.1 F 177.5 lbs 70 in 25.47 kg/m2 1.99 m2 97 % 02/23/2014 11:33:00 AM 125 mmHg 70 mmHg 80 bpm 18 rpm 97.7 F 181 lbs 70 in 25.9705 kg/m 2.0137 m 98 % 07/27/2013 2:48:00 PM 130 mmHg 72 mmHg 88 bpm 20 rpm 97.9 F 183.4 lbs 70 in 26.31 kg/m2 2.03 m2 98 % 02/10/2013 3:59:00 PM 158 mmHg 100 mmHg 87 bpm 16 rpm 97.6 F 187.375 lbs 70 in 26.8852 kg/m 2.0488 m 97 % 12/03/2011 3:08:00 PM 152 mmHg 82 mmHg 12/03/2011 2:57:00 PM 144 mmHg 100 mmHg 88 bpm 16 rpm 98.3 F 200.25 lbs 98 % 02/19/2011 8:42:00 AM 148 mmHg 82 mmHg 78 bpm 16 rpm 97.3 F 205.375 lbs 98 % 02/07/2011 3:33:00 PM 140 mmHg 72 mmHg 87 bpm 16 rpm 97.3 F 207 lbs 70 in 29.7011 kg/m 2.15 m2 97 % 08/10/2010 3:53:00 PM 122 mmHg 70 mmHg 75 bpm 16 rpm 98 F 199.5 lbs 70 in 28.62 kg/m2 2.1141 m 97 % 02/02/2010 4:03:00 PM 130 mmHg 70 mmHg 70 bpm 16 rpm 97.5 F 194.375 lbs 70 in 27.8896 kg/m 2.09 m2 97 % 07/25/2009 4:21:00 PM 120 mmHg 70 mmHg 81 bpm 16 rpm 97.2 F 199.375 lbs 70 in 28.61 kg/m2 2.1134 m 97 % Social History Name [...] A1C 5.50 %Est Avg Glucose 111.2 mg/dL 07/24/2016 2:39 PM Clarity Ur clear Color Ur light yellow Glucose Ur-sCnc neg Bilirub Ur Ql Strip neg Ketones Ur Ql Strip neg Sp Gr Ur Qn 1.020 Hgb Ur Ql Strip neg pH Ur-LsCnc 5.5 Prot Ur Ql Strip 30mg/dl Urobilinogen Ur-mCnc 0.2eu/ dl Nitrite Ur Ql Strip neg WBC Est Ur Ql Strip small 07/26/2016 9:30 AM COLOR YELLOW APPEARANCE CLEAR SPEC GRAV 1.015 pH 6.5 PROTEIN NEGATIVE GLUCOSE NEGATIVE mg/dLKETONE NEGATIVE BILIRUBIN NEGATIVE BLOOD NEGATIVE NITRITE NEGATIVE LEUK SCREEN NEGATIVE MICRO IND? NOT IND 07/28/2016 7:00 AM TRIGLYCERIDES 74.0 mg/dLCHOLESTEROL 128.0 mg/dLHDL 36.0 mg/ dLTOT CHOL/HDL 3.6 LDL (CALC) 77.0 mg/dLWBC 7.5 RBC 5.13 HGB 16.0 g/dLHCT 47.60 %MCV 93.0 fLMCH 31.20 pgMCHC 33.60 g/dLRDW SD 45 RDW CV 13.20 %MPV 8.80 fLPLT 233 NRBC# 0.00 NRBC% 0.0 %NEUT 65.0 %%LYMP 21.70 %%MONO 6.70 %%EOS 6.0 %%BASO 0.50 %#NEUT 4.87 #LYMP 1.63 #MONO 0.50 #EOS 0.45 #BASO 0.04 MANUAL DIFF NOT IND GLUCOSE 106.0 mg/dLSODIUM 140.0 mmol/LPOTASSIUM 3.90 mmol/LCHLORIDE 108.0 mmol/ LCO2 22.0 mmol/LBUN 17.0 mg/dLCREATININE 1.10 mg/dLSGOT/AST 24.0 IU/LSGPT/ALT 24.0 IU/LALK PHOS 118.0 IU/LTOTAL PROTEIN 7.30 g/dLALBUMIN 4.30 g/dLTOTAL BILI 0.30 mg/dLCALCIUM 9.40 mg/dLAGE 56 GFR NonAA 69 GFR AA 84 eGFR >60 mL/min/1.73m eGFR AA* >60 History Of Immunizations Name Date Admin Mfg [...] left carotid artery Jul 24 2016 1:28PM Payers Insurance Name Company Name Plan Name Plan Number Policy Number Policy Group Number Start Date [employer] [id number] N/A Preferred Health Care [facility] [id number] April AHA/[facility] Health AHA/ [facility] [id number] Wednesday, 2010 [facility] [id number] N/A Cigna Cigna [id number] N/A Cigna Cigna [id number] N/A [facility] Med Occupational Medicine [id number] N/A Cigna Cigna [id number] N/A History of Encounters Visit Date Visit Type Provider 07/24/2016 Voided Arely Meng MD 07/24/2016 Office visit Alexandra Rodriguez APRN 01/17/2016 Office visit Arely Meng MD 08/11/2015 [...]
--- OUTSIDE RECORDS SUMMARY | 2018-07-01 10:45 | XMS REPORT ---
Author Author Arely Meng Organization [facility] Address [address] [place], [place] [id number] Care Team Providers Care Type Copyist Name Role Phone Arely Meng PCP Allergies and Adverse Reactions Name Reaction Notes NO KNOWN DRUG ALLERGIES Plan of Treatment Planned Activity Comments Planned Date Planned Time Plan/Goal GLYCOSYLATED HEMOGLOBIN TEST 01/29/2016 12:00 AM ASSAY GLUCOSE BLOOD QUANT 01/29/2016 12:00 AM Medications Active Name Start [...] AM COMPLETE CBC W/AUTO DIFF WBC Returned 04/10/2015 12:00 AM COMPREHEN METABOLIC PANEL Returned 04/10/2015 12:00 AM LIPID PANEL Returned 02/07/2011 12:00 AM COMPREHEN METABOLIC PANEL Reviewed 02/07/2011 12:00 AM LIPID PANEL Reviewed 02/07/2011 12:00 AM Prostate Cancer Screening PSA Reviewed 02/19/2011 12:00 AM IMMUNIZATION ADMIN Reviewed 02/19/2011 12:00 AM PNEUMOCOCCAL VACC 23 KAREN IM Reviewed 08/11/2015 9:41 AM URINALYSIS AUTO W/O SCOPE Reviewed 05/28/2011 12:00 AM COMPLETE CBC W/AUTO DIFF WBC Returned 05/28/2011 12:00 AM COMPREHEN METABOLIC PANEL Returned 05/28/2011 12:00 AM LIPID PANEL Returned 01/17/2016 12:00 AM COMPLETE CBC W/AUTO DIFF WBC Returned 01/17/2016 12:00 AM COMPREHEN METABOLIC PANEL Returned 01/17/2016 12:00 AM LIPID PANEL Returned 11/26/2011 12:00 AM COMPLETE CBC W/AUTO DIFF WBC Returned 11/26/2011 12:00 AM COMPREHEN METABOLIC PANEL Returned 11/26/2011 12:00 AM LIPID PANEL Returned 12/03/2011 12:00 AM COMPREHEN METABOLIC PANEL Returned 12/03/2011 12:00 AM LIPID PANEL Returned 12/03/2011 12:00 AM COMPLETE CBC W/AUTO DIFF WBC Returned 12/03/2011 12:00 AM Prostate Cancer Screening PSA Returned 01/25/2010 12:00 AM COMPREHEN METABOLIC PANEL Reviewed 01/25/2010 12:00 AM LIPID PANEL Reviewed 02/10/2013 12:00 AM CHEST X-RAY 2VW FRONTAL&LATL Returned 08/03/2010 12:00 AM COMPREHEN METABOLIC PANEL Reviewed 08/03/2010 12:00 AM LIPID PANEL Reviewed 08/03/2010 12:00 AM Prostate Cancer Screening PSA Reviewed 02/18/2014 12:00 AM COMPLETE CBC W/AUTO DIFF WBC Returned 02/18/2014 12:00 AM COMPREHEN METABOLIC PANEL Returned 02/18/2014 12:00 AM LIPID PANEL Returned 02/09/2011 12:00 AM COMPREHEN METABOLIC PANEL Reviewed [...] TRIGLYCERIDES 84.0 mg/dLCHOLESTEROL 113.0 mg/dLHDL 31.0 mg/ dLLDL 62.0 mg/dLGLUCOSE 114.0 mg/dLSODIUM 140.0 mmol/LPOTASSIUM 4.60 mmol/ LCHLORIDE 103.0 mmol/LCO2 30.0 mmol/LBUN 16.0 mg/dLCREATININE 1.20 mg/dLSGOT/ AST 22.0 IU/LSGPT/ALT 23.0 IU/LALK PHOS 116.0 IU/LTOTAL PROTEIN 7.80 g/ dLALBUMIN 4.50 g/dLTOTAL BILI 0.40 mg/dLCALCIUM 10.50 mg/dLeGFR >60 mL/min/1.73 m2 07/25/2009 4:33 PM HIV1+2 Ab Ser Ql no risk Depression Done 07/25/2009 4:34 PM Colonoscopy-Women and Men over 50 Declined Digital Rectal Exam Refused 01/17/2010 12:00 AM Cholest Cry Stone Ql IR 108.0 %LDLc SerPl-mCnc 58.0 mg/ dLGlucose SerPl-mCnc 114.0 mg/dL 01/17/2010 6:00 AM TRIGLYCERIDES 105.0 mg/dLCHOLESTEROL 108.0 mg/dLHDL 29.0 mg/ dLLDL (CALC) 58.0 mg/dLGLUCOSE 114.0 mg/dLSODIUM 141.0 mmol/LPOTASSIUM 4.20 mmol /LCHLORIDE 106.0 mmol/LCO2 27.0 mmol/LBUN 19.0 mg/dLCREATININE 1.20 mg/dLSGOT/ AST 19.0 IU/LSGPT/ALT 20.0 IU/LALK PHOS 125.0 IU/LTOTAL PROTEIN 7.10 g/ dLALBUMIN 4.10 g/dLTOTAL BILI 0.30 mg/dLCALCIUM 9.60 mg/dLeGFR >60 mL/min/1.73 m2 02/02/2010 4:23 PM PSA SerPl-mCnc 0.0 ng/mL 08/04/2010 12:00 AM Cholest Cry Stone Ql IR 121.0 %LDLc SerPl-mCnc 68.0 mg/ dLGlucose SerPl-mCnc 107.0 mg/dL 08/04/2010 8:10 AM TRIGLYCERIDES 105.0 mg/dLCHOLESTEROL 121.0 mg/dLHDL 32.0 mg/ dLLDL (CALC) 68.0 mg/dLPSA TOTAL 1.660 ng/mLGLUCOSE 107.0 mg/dLSODIUM 141.0 mmol /LPOTASSIUM 4.0 mmol/LCHLORIDE 104.0 mmol/LCO2 29.0 mmol/LBUN 19.0 mg/ dLCREATININE 1.10 mg/dLSGOT/AST 19.0 IU/LSGPT/ALT 20.0 IU/LALK PHOS 117.0 IU/ LTOTAL PROTEIN 7.20 g/dLALBUMIN 4.30 g/dLTOTAL BILI 0.50 mg/dLCALCIUM 9.90 mg/ dLeGFR >60 mL/min/1.73 m2 08/10/2010 3:57 PM Abdominal Aortic Aneurysm Refused 08/10/2010 3:58 PM Colonoscopy-Women and Men over 50 ordered 08/10/2010 3:58 PM Digital Rectal Exam Refused 02/02/2011 9:05 AM TRIGLYCERIDES 106.0 mg/dLCHOLESTEROL 137.0 mg/dLHDL 31.0 mg/ dLLDL (CALC) 85.0 mg/dL 05/29/2011 10:45 AM WBC 6.5 RBC 5.12 HGB 16.20 g/dLHCT 46.70 %MCV 91.0 fLMCH 31.60 pgMCHC 34.70 g/dLRDW CV 13.0 %MPV 9.90 fLPLT 219 %NEUT 59.0 %%LYMP 31.10 % %MONO 4.80 %%EOS 4.80 %%BASO 0.30 %#NEUT 3.85 #LYMP 2.03 #MONO 0.31 #EOS 0.31 # BASO 0.02 GLUCOSE 95.0 mg/dLSODIUM 140.0 mmol/LPOTASSIUM 4.30 mmol/LCHLORIDE 105.0 mmol/LCO2 28.0 mmol/LBUN 22.0 mg/dLCREATININE 1.10 mg/dLSGOT/AST 26.0 IU/ LSGPT/ALT 46.0 IU/LALK PHOS 122.0 IU/LTOTAL PROTEIN 7.30 g/dLALBUMIN 4.60 g/ dLTOTAL BILI 0.50 mg/dLCALCIUM 9.80 mg/dLeGFR >60 mL/min/1.73 [id number] 164.0 mg/dLCHOLESTEROL 125.0 mg/dLHDL 26.0 mg/dLLDL (CALC) 66.0 mg/dL 11/26/2011 8:25 AM WBC 6.4 RBC 4.95 HGB 15.70 g/dLHCT 44.80 %MCV 91.0 fLMCH 31.70 pgMCHC 35.0 g/dLRDW CV 13.10 %MPV 9.70 fLPLT 209 %NEUT 65.50 %%LYMP 23.50 %%MONO 5.0 %%EOS 5.50 %%BASO 0.50 %#NEUT 4.18 #LYMP 1.50 #MONO 0.32 #EOS 0.35 # BASO 0.03 GLUCOSE 115.0 mg/dLSODIUM 141.0 mmol/LPOTASSIUM 4.10 mmol/LCHLORIDE 108.0 mmol/LCO2 26.0 mmol/LBUN 20.0 mg/dLCREATININE 1.20 mg/dLSGOT/AST 21.0 IU/ LSGPT/ALT 31.0 IU/LALK PHOS 127.0 IU/LTOTAL PROTEIN 7.0 g/dLALBUMIN 4.40 g/ dLTOTAL BILI 0.40 mg/dLCALCIUM 9.80 mg/dLeGFR 60 TRIGLYCERIDES 62.0 mg/ dLCHOLESTEROL 108.0 mg/dLHDL 31.0 mg/dLLDL (CALC) 65.0 mg/dL 02/07/2013 5:55 AM WBC 8.3 RBC 4.61 HGB 14.50 g/dLHCT 42.30 %MCV 92.0 fLMCH 31.50 pgMCHC 34.30 g/dLRDW CV 13.60 %MPV 9.30 fLPLT 222 %NEUT 66.80 %%LYMP 20.40 %%MONO 6.90 %%EOS 5.30 %%BASO 0.60 %#NEUT 5.52 #LYMP 1.69 #MONO 0.57 #EOS 0.44 #BASO 0.05 GLUCOSE 118.0 mg/dLSODIUM 146.0 mmol/LPOTASSIUM 3.90 mmol/ LCHLORIDE 113.0 mmol/LCO2 24.0 mmol/LBUN 19.0 mg/dLCREATININE 1.10 mg/dLSGOT/ AST 21.0 IU/LSGPT/ALT 18.0 IU/LALK PHOS 153.0 IU/LTOTAL PROTEIN 6.90 g/ dLALBUMIN 4.0 g/dLTOTAL BILI 0.20 mg/dLCALCIUM 10.10 mg/dLeGFR >60 mL/min/1.73 [id number] 155.0 mg/dLCHOLESTEROL 109.0 mg/dLHDL 33.0 mg/dLLDL (CALC) 45.0 mg/dLPSA TOTAL 2.460 ng/mL 03/02/2014 8:25 AM WBC 7.2 RBC 4.68 HGB 15.40 g/dLHCT 43.90 %MCV 94.0 fLMCH 32.90 pgMCHC 35.10 g/dLMPV 8.30 fLPLT 281 %NEUT 66.30 %%LYMP 27.10 %#NEUT 4.70 # LYMP 2.00 GLUCOSE 118.0 mg/dLSODIUM 140.0 mmol/LPOTASSIUM 4.0 mmol/LCHLORIDE 105.0 mmol/LCO2 26.0 mmol/LBUN 18.0 mg/dLCREATININE 1.10 mg/dLSGOT/AST 30.0 IU/ LSGPT/ALT 29.0 IU/LALK PHOS 110.0 IU/LTOTAL PROTEIN 7.70 g/dLALBUMIN 4.30 g/ dLTOTAL BILI 0.40 mg/dLCALCIUM 10.30 mg/dLeGFR 60 TRIGLYCERIDES 65.0 mg/ dLCHOLESTEROL 118.0 mg/dLHDL 40.0 mg/dLLDL (CALC) 65.0 mg/dL 04/11/2015 5:15 AM GLUCOSE 114.0 mg/dLSODIUM 139.0 mmol/LPOTASSIUM 3.40 mmol/ LCHLORIDE 103.0 mmol/LCO2 26.0 mmol/LBUN 20.0 mg/dLCREATININE 1.10 mg/dLSGOT/ AST 31.0 IU/LSGPT/ALT 27.0 IU/LALK PHOS 122.0 IU/LTOTAL PROTEIN 7.0 g/dLALBUMIN 4.10 g/dLTOTAL BILI 0.30 mg/dLCALCIUM 9.80 mg/dLeGFR >60 mL/min/1.73mWBC 8.6 RBC 4.70 HGB 15.0 g/dLHCT 44.10 %MCV 94.0 fLMCH 31.90 pgMCHC 34.0 g/dLRDW CV 13.30 %MPV 9.30 fLPLT 246 %NEUT 69.80 %%LYMP 18.10 %%MONO 8.20 %%EOS 3.70 %% BASO 0.20 %#NEUT 6.01 #LYMP 1.56 #MONO 0.71 #EOS 0.32 #BASO 0.02 TRIGLYCERIDES 81.0 mg/dLCHOLESTEROL 98.0 mg/dLHDL 29.0 mg/dLLDL (CALC) 53.0 mg/dL 08/11/2015 9:41 AM Clarity [...] TRIGLYCERIDES 274.0 mg/dLCHOLESTEROL 122.0 mg/dLHDL 36.0 mg/ dLLDL (CALC) 31.0 mg/dLGLUCOSE 135.0 mg/dLSODIUM 140.0 mmol/LPOTASSIUM 4.20 mmol /LCHLORIDE 106.0 mmol/LCO2 22.0 mmol/LBUN 19.0 mg/dLCREATININE 1.20 mg/dLSGOT/ AST 26.0 IU/LSGPT/ALT 29.0 IU/LALK PHOS 144.0 IU/LTOTAL PROTEIN 7.50 g/ dLALBUMIN 4.30 g/dLTOTAL BILI 0.40 mg/dLCALCIUM 9.70 mg/dLeGFR >60 mL/min/1.73m WBC 10.2 RBC 5.03 HGB 15.90 g/dLHCT 47.20 %MCV 94.0 fLMCH 31.60 pgMCHC 33.70 g/ dLRDW CV 13.30 %MPV 8.70 fLPLT 276 %NEUT 67.60 %%LYMP 20.20 %%MONO 6.50 %%EOS 5.0 %%BASO 0.50 %#NEUT 6.91 #LYMP 2.07 #MONO 0.67 #EOS 0.51 #BASO 0.05 History Of Immunizations Name Date Admin Mfg Name Mfg Code Trade Name Lot# Route Inj Vis Given Vis Pub CVX PCV 02/19/2011 [employer] MSD Pneumovax [...] Policy Number Policy Group Number Start Date Cigna Cigna [id number] N/A Preferred Health Care [facility] [id number] April AHA/[facility] Health AHA/ [facility] Health [id number] Wednesday, 2010 [facility] [id number] N/A Cigna Cigna [id number] N/A Cigna Cigna [id number] N/A [facility] Occupational Medicine [id number] N/A History of Encounters Visit Date Visit Type Provider 01/17/2016 Office visit Arely Meng MD 08/11/2015 Office visit Alexandra Rodriguez RESIDENTIAL NURSE 04/13/2015 Office visit Arely Meng MD 09/08/2014 [...]
--- OUTSIDE RECORDS SUMMARY | 2018-07-01 10:46 | XMS REPORT ---
Author Author Arely Meng Organization [facility] Address [address] [place], [place] [id number] Care Team Providers Care [employer] Name Role Phone Arely Meng PCP Arely Meng PreferredProvider Allergies and Adverse Reactions Name Reaction Notes NO KNOWN DRUG ALLERGIES Plan of Treatment Planned Activity Comments Planned Date Planned Time Plan/Goal Fasting blood glucose measurement 01/29/2016 12:00 AM Urinalysis 07/26/2016 12:00 AM CMP 07/26/2016 12:00 AM CBC W/ AUTO DIFF (RFLX MAN DIFF IF IND). 07/26/2016 12:00 AM Lipid Blood Profile 07/26/2016 12:00 AM Bilateral duplex scan of carotid [...] 2:39 PM URINALYSIS AUTO W/O SCOPE Reviewed 11/26/2011 12:00 AM COMPLETE CBC W/AUTO DIFF [...] 2016 8:20AM Proteinuria Jul 26 2016 8:20AM Payers Insurance Name Company Name Plan Name Plan Number Policy Number Policy Group Number Start Date [employer] [id number] N/A Preferred Health Care [facility] [id number] April AHA/[employer] AHA/ [employer] [id number] Wednesday, 2010 [facility] [id number] N/A [employer] [id number] N/A [employer] [id number] N/A [facility] Occupational [facility] [id number] N/A [employer] [id number] N/A History of Encounters Visit Date Visit [...]
[2018-07-01] MEDS ORDERED: NS IV 1000 ML 3,000 ML ONE (10:47)
[2018-07-01] MEDS ORDERED: HEParin 1000 UNIT/ML (10ML VIAL) FOR BOLUS ONE (10:47)
[2018-07-01] MEDS ORDERED: LIDOCAINE 1% INJ 20 ML 20 ML VIAL ONE (10:47)
--- OUTSIDE RECORDS SUMMARY | 2018-07-01 10:47 | XMS REPORT ---
Author Author Arely Meng Organization [facility] Address [address] [place], [place] [address] Care Team Providers Care Notch Grinder Name Role Phone Arely Meng PCP Arely [...] TABLETS BY MOUTH ONCE DAILY WITH FOOD clopidogrel 75 mg oral tablet 06/13/2017 TAKE ONE TABLET BY MOUTH ONCE DAILY for 90 days montelukast 10 mg oral tablet 08/07/2017 12/05/2017 take 1 tablet (10 mg) by oral route once daily in the evening for 30 days Advair Diskus 250-50 mcg/dose inhalation blister with device 08/21/20172017 INHALE ONE DOSE BY MOUTH IN THE MORNING AND ONE IN THE EVENING APPROXIMATELY 12 HOURS APART for 30 days Name Start Date Expiration Date SIG Comments [...] ONCE DAILY WITH FOOD for 90 days simvastatin 80 mg oral tablet 03/04/2017 03/04/2017 TAKE ONE TABLET BY MOUTH AT BEDTIME lisinopril-hydrochlorothiazide 20-25 mg oral tablet 05/05/2017 05/05/2017 TAKE ONE TABLET BY MOUTH ONCE DAILY potassium chloride 10 mEq oral tablet extended release 05/05/2017 05/05/2017 TAKE TWO TABLETS BY MOUTH ONCE DAILY WITH FOOD amlodipine 5 mg oral tablet 07/16/2017 07/16/2017 TAKE ONE TABLET BY MOUTH ONCE DAILY Discontinued Name Start Date Discontinued Date SIG [...] HC BMI BSA BMI Percentile O2 Sat(%) 08/21/2017 4:10:00 PM 124 mmHg 70 mmHg 78 bpm 16 rpm 98.4 F 183.5 lbs 70 in 26.3292 kg/m 2.0275 m 94 % 07/09/2017 3:59:00 PM 130 mmHg [...] Well adult exam Aug 21 2017 4:14PM Payers Insurance Name Company Name Plan Name Plan Number Policy Number Policy Group Number Start Date Cigna Cigna [id number] N/A [facility] Med Occupational Medicine [id number] N/A Cigna Cigna [id number] N/A [employer]ctions [id number] N/A Preferred Health Care [facility] [id number] April AHA/[facility] Health AHA/ [facility] [id number] Wednesday, April 28, 2010 [facility] [id number] N/A Cigna Cigna [id number] N/A History of Encounters Visit Date Visit Type Provider 08/21/2017 Office visit Arely Meng MD 07/09/2017 Office visit Tu Denney AUTOMOTIVE WARRANTY ADMINISTRATOR 02/18/2017 Office visit Arely Meng MD 08/19/2016 Office visit Arely Meng MD 07/24/2016 Voided Arely Meng MD 07/24/2016 Office visit Alexandra Rodriguez AUTOMOTIVE WARRANTY ADMINISTRATOR 01/17/2016 Office visit Arely Meng MD 08/11/2015 Office visit Alexandra Rodriguez AUTOMOTIVE WARRANTY ADMINISTRATOR 04/13/2015 Office visit Arely Meng MD 09/08/2014 [...]
--- OUTSIDE RECORDS SUMMARY | 2018-07-01 10:48 | XMS REPORT ---
Author Author Arely Meng Organization [facility] Address [address] [place], [place] [id number] Care Team Providers Care Licensed Club Manager Name Role Phone Arely Meng PCP Arely [...] TABLETS BY MOUTH ONCE DAILY WITH FOOD potassium chloride 10 mEq oral tablet extended release 11/04/2016 TAKE TWO TABLETS BY MOUTH ONCE DAILY WITH FOOD clopidogrel 75 mg oral tablet 12/11/2016 TAKE ONE TABLET BY MOUTH ONCE DAILY lisinopril-hydrochlorothiazide 20-25 mg oral tablet 02/03/2017 05/04/2017 TAKE ONE TABLET BY MOUTH ONCE DAILY [...] BY MOUTH AT BEDTIME for 90 days clopidogrel 75 mg oral tablet 08/19/2016 12/17/2016 take 1 tablet (75 mg) by oral route once daily for 30 days Discontinued Name Start Date [...] HC BMI BSA BMI Percentile O2 Sat(%) 02/18/2017 3:59:00 PM 124 mmHg 84 mmHg 88 bpm 16 rpm 98.3 F 186.5 lbs 70 in 26.76 kg/m2 2.04 m2 95 % 08/19/2016 3:58:00 PM 128 mmHg 60 mmHg 85 bpm 16 rpm 99.9 F 188.5 lbs 70 in 27.0467 kg/m 2.055 m 95 % 07/24/2016 1:26:00 PM 124 mmHg [...] Reviewed Results Summary Date and Description Results 01/17/2010 6:00 AM TRIGLYCERIDES 105.0 mg/dLCHOLESTEROL 108.0 [...] 78 eGFR >60 mL/min/1.73 m2eGFR AA* >60 08/04/2010 8:10 AM TRIGLYCERIDES 105.0 mg/dLCHOLESTEROL 121.0 [...] eGFR >60 mL/min/1.73 m2eGFR AA * >60 02/02/2011 9:05 AM TRIGLYCERIDES 106.0 mg/dLCHOLESTEROL 137.0 [...] neg WBC Est Ur Ql Strip small History Of Immunizations Name Date Admin Mfg [...] Elevated fasting glucose Feb 18 2017 4:02PM Payers Insurance Name Company Name Plan Name Plan Number Policy Number Policy Group Number Start Date Cigna Cigna [id number] N/A [employer] [id number] N/A Preferred Health Care [facility] [id number] April AHA/[facility] AHA/ [facility] [id number] Wednesday, 2010 [facility] [id number] N/A Cigna Cigna [id number] N/A Cigna Cigna [id number] N/A [facility] Med Occupational Medicine [id number] N/A History of Encounters Visit Date Visit Type Provider 02/18/2017 Office visit Arely Meng MD 08/19/2016 [...]
--- OUTSIDE RECORDS SUMMARY | 2018-07-01 10:49 | XMS REPORT ---
Author Author Alexandra Rodriguez [facility] Address [address] [place], [place] [address] Care Team Providers Care Sub Acute Care Nurse Name Role Phone Alexandra Rodriguez PCP Unavailable Allergies and Adverse Reactions Name Reaction Notes NO KNOWN DRUG ALLERGIES Plan of Treatment Not available. Medications Active Name Start Date Estimated Completion [...] Diskus 250-50 mcg/dose inhalation blister with device 07/10/2015 INHALE ONE DOSE BY MOUTH IN THE MORNING AND ONE IN THE EVENING APPROXIMATELY 12 HOURS APART Klor-Con M10 10 mEq oral tablet,ER particles/crystals 08/10/2015 TAKE TWO TABLETS BY MOUTH ONCE DAILY WITH FOOD Name Start Date Expiration Date SIG Comments [...] HC BMI BSA BMI Percentile O2 Sat(%) 08/11/2015 9:23:00 AM 139 mmHg 82 mmHg [...] Returned 05/28/2011 12:00 AM LIPID PANEL Returned 11/26/2011 12:00 [...] BILI 0.50 mg/dLCALCIUM 9.80 mg/dLeGFR >60 mL/min/1.73 [id number] 164.0 mg/dLCHOLESTEROL 125.0 mg/dLHDL 26.0 mg/dLLDL (CALC) [...] BILI 0.20 mg/dLCALCIUM 10.10 mg/dLeGFR >60 mL/min/1.73 [id number] 155.0 mg/dLCHOLESTEROL 109.0 mg/dLHDL 33.0 mg/dLLDL (CALC) [...] WBC Est Ur Ql Strip NEGATI VE History Of Immunizations Name Date Admin Mfg [...] driving license) exam Aug 11 2015 9:41AM Payers Insurance Name Company Name Plan Name Plan Number Policy Number Policy Group Number Start Date [facility] Med Occupational Medicine [id number] N/A Preferred Health Care [facility] [id number] April AHA/[employer] Health AHA/ [facility] [id number] Wednesday, April 28, 2010 [facility] [id number] N/A Cigna Cigna [id number] N/A Cigna Cigna [id number] N/A History of Encounters Visit Date Visit Type Provider 08/11/2015 Office visit Alexandra Rodriguez APRN 04/13/2015 [...]
--- OUTSIDE RECORDS SUMMARY | 2018-07-01 10:50 | XMS REPORT ---
Author Author Arely Meng Organization [facility] Address [address] [place], [place] [phone] Care Team Providers Care Brace Maker Name Role Phone Arely Meng PCP Arely [...] Date Tank Connections Tank Connections Work Comp [id number] N/A Preferred Health Care [facility] [id number] April AHA/[facility] AHA/ [facility] [id number] Wednesday, [address] [facility] [id number] N/A Cigna Cigna [id number] N/A Cigna Cigna [id number] N/A [facility] Med Occupational Medicine [id number] N/A Cigna Cigna [id number] N/A History of Encounters Visit Date Visit [...]
--- OUTSIDE RECORDS SUMMARY | 2018-07-01 10:51 | XMS REPORT ---
Author Author Arely Meng Organization [facility] Address [address] [place], [place] [address] Care Team Providers Care Pearl Restorer Name Role Phone Arely Meng PCP Arely [...] LEUK SCREEN NEGATIVE MICRO IND? NOT IND History Of Immunizations Name Date Admin Mfg [...] Date Tank Connections [employer] Work Comp [id number] N/A Preferred Health Care [facility] [id number] April AHA/[facility] AHA/ [facility] [id number] Wednesday, 2010 [facility] [id number] N/A Cigna [place] [id number] N/A Cigna [place] [id number] N/A [facility] Med Occupational Medicine [id number] N/A [employer] Cigna [id number] N/A History of Encounters Visit Date Visit [...]
--- OUTSIDE RECORDS SUMMARY | 2018-07-01 10:52 | XMS REPORT ---
Author Author Arely Meng Organization [facility] Address [address] [place], [place] [address] Care Team Providers Care Paste Mixer Name Role Phone Arely Meng PCP Arely [...] WITH FOOD clopidogrel 75 mg oral tablet 08/19/2016 12/17/2016 take 1 tablet (75 mg) by oral route once daily for 30 days Name Start Date Expiration [...] HC BMI BSA BMI Percentile O2 Sat(%) 08/19/2016 3:58:00 PM 128 mmHg 60 mmHg [...] (peripheral vascular disease) Aug 19 2016 4:01PM Payers Insurance Name Company Name Plan Name Plan Number Policy Number Policy Group Number Start Date [employer]ctions [id number] N/A [facility] [id number] April AHA/First [facility] AHA/ [facility] [id number] Wednesday, 2010 [facility] [id number] N/A Cigna Cigna [id number] N/A Cigna Cigna [id number] N/A [facility] Med Occupational Medicine [id number] N/A Cigna Cigna [id number] N/A History of Encounters Visit Date Visit Type Provider 08/19/2016 Office visit Arely Meng MD 07/24/2016 Voided Arely Meng MD 07/24/2016 Office visit Alexandra Rodriguez DAIRY FEED MIXING OPERATOR 01/17/2016 Office visit Arely Meng MD 08/11/2015 [...]
--- OUTSIDE RECORDS SUMMARY | 2018-07-01 10:53 | XMS REPORT ---
Author Author Arely Meng Organization [facility] Address [address] [place], [place] [address] Care Team Providers Care Header Setup Operator Name Role Phone Arely Meng PCP Arely [...] Date Tank Connections Tank Connections Work Comp [id number] N/A Preferred Health Care [facility] [id number] April AHA/[facility] AHA/ [facility] [id number] Wednesday, [address] [facility] [id number] N/A Cigna Cigna [id number] N/A Cigna Cigna [id number] N/A [facility] Med Occupational Medicine [id number] N/A Cigna Cigna [id number] N/A History of Encounters Visit Date Visit [...]
--- OUTSIDE RECORDS SUMMARY | 2018-07-01 10:53 | XMS REPORT ---
Author Author Arely Meng Organization [facility] Address [address] [place], [place] [address] Care Team Providers Care Fisher Terrapin Name Role Phone Arely Meng PCP Allergies [...] TAKE ONE TABLET BY MOUTH AT BEDTIME Klor-Con M10 10 mEq oral tablet,ER particles/crystals 11/10/2014 TAKE TWO TABLETS BY MOUTH ONCE DAILY WITH FOOD lisinopril-hydrochlorothiazide 20-25 mg oral tablet 12/07/2014 TAKE [...] HC BMI BSA BMI Percentile O2 Sat(%) 04/13/2015 3:22:00 PM 118 mmHg 70 mmHg [...] AM PNEUMOCOCCAL VACC 23 KAREN IM Reviewed 05/28/2011 12:00 AM COMPLETE CBC W/AUTO [...] BILI 0.50 mg/dLCALCIUM 9.80 mg/dLeGFR >60 mL/min/1.73 [id number] 164.0 mg/dLCHOLESTEROL 125.0 mg/dLHDL 26.0 mg/dLLDL (CALC) [...] BILI 0.20 mg/dLCALCIUM 10.10 mg/dLeGFR >60 mL/min/1.73 [id number] 155.0 mg/dLCHOLESTEROL 109.0 mg/dLHDL 33.0 mg/dLLDL (CALC) [...] 98.0 mg/dLHDL 29.0 mg/dLLDL (CALC) 53.0 mg/dL History Of Immunizations Name Date Admin [...] 2015 3:26PM Hypokalemia Apr 13 2015 3:26PM Payers Insurance Name Company Name Plan Name Plan Number Policy Number Policy Group Number Start Date Cigna Cigna [id number] N/A Preferred Health Care [facility] [id number] April AHA/[facility] AHA/ [facility] [id number] Wednesday, 2010 [facility] [id number] N/A Cigna Cigna [id number] N/A History of Encounters Visit Date Visit Type Provider 04/13/2015 Office visit Arely Meng MD 09/08/2014 [...]
--- OUTSIDE RECORDS SUMMARY | 2018-07-01 10:54 | XMS REPORT ---
Author Tu Caballero [facility] Address [address] [place], [place] [address] Care Team Providers Care Welder Repair Name Role Phone Tu Denney PCP Arely Meng PreferredProvider Allergies and Adverse [...] BY MOUTH ONCE DAILY for 90 days Name Start Date Expiration Date SIG [...] Diskus 250-50 mcg/dose inhalation blister with device 07/16/20172017 INHALE ONE DOSE BY MOUTH IN THE MORNING AND ONE IN THE EVENING APPROXIMATELY 12 HOURS APART Discontinued Name [...] HC BMI BSA BMI Percentile O2 Sat(%) 07/09/2017 3:59:00 PM 130 mmHg 70 mmHg [...] driving license) exam Jul 09 2017 4:01PM Payers Insurance Name Company Name Plan Name Plan Number Policy Number Policy Group Number Start Date Tank Connections Tank Connections [id number] N/A Preferred Health Care [facility] [id number] April AHA/[facility] AHA/ [facility] [id number] Wednesday, 2010 [facility] [id number] N/A Cigna Cigna [id number] N/A Cigna Cigna [id number] N/A [facility] Med Occupational Medicine [id number] N/A Cigna Cigna [id number] N/A History of Encounters Visit Date Visit Type Provider 07/09/2017 Office visit Tu Denney APRN 02/18/2017 Office visit Arely Meng MD 08/19/2016 Office visit Arely Meng MD 07/24/2016 Voided Arely Meng MD 07/24/2016 Office visit Alexandra Rodriguez BRAKE OPERATOR SHEET METAL 01/17/2016 Office visit Arely Meng MD 08/11/2015 [...]
--- OUTSIDE RECORDS SUMMARY | 2018-07-01 10:55 | XMS REPORT ---
Author Tu Caballero [facility] Address [address] [place], [place] [address] Care Team Providers Care Sheet Rock Taper Helper Name Role Phone uT Denney PCP Arely Meng PreferredProvider Allergies and [...] BY MOUTH ONCE DAILY for 90 days amlodipine 5 mg oral tablet 07/16/2017 07/16/2017 [...] TABLETS BY MOUTH ONCE DAILY WITH FOOD Discontinued Name Start Date Discontinued Date SIG [...] Reviewed 01/25/2010 12:00 AM LIPID PANEL Reviewed 07/09/2017 12:00 AM DOT Physical w [...] Number Start Date Tank Connections Tank Connections [id number] N/A Preferred Health Care [facility] [id number] April AHA/[facility] AHA/ [facility] [id number] Wednesday, 2010 [facility] [id number] N/A Cigna Cigna [id number] N/A Cigna Cigna [id number] N/A [facility] Med Occupational Medicine [id number] N/A Cigna Cigna [id number] N/A History of Encounters Visit Date Visit [...]
--- OUTSIDE RECORDS SUMMARY | 2018-07-01 10:56 | XMS REPORT ---
Author Author Lisa Helms [facility] Address [address] [place] [id number] Care Team Providers Care Printing Machine Operator Name Role Phone Lisa Helms PCP Unavailable Allergies and Adverse Reactions Name Reaction Notes NO KNOWN DRUG ALLERGIES Plan of Treatment Not available. Medications Active Name Start Date Estimated Completion Date SIG Comments Klor-Con M10 Oral tablet,ER particles/crystals 10 mEq 10/25/2013 10/20/2014 TAKE TWO TABLETS BY MOUTH EVERY DAY WITH FOOD lisinopril-hydrochlorothiazide oral tablet 20-25 mg 11/08/2013 11/03/2014 TAKE ONE TABLET BY MOUTH EVERY DAY simvastatin oral tablet 80 mg 11/12/2013 11/07/2014 TAKE ONE TABLET BY MOUTH AT BEDTIME for 30 days lisinopril-hydrochlorothiazide oral tablet 20-25 mg 08/05/2014 TAKE ONE TABLET BY MOUTH ONCE DAILY amlodipine oral tablet 5 mg 08/05/2014 11/03/2014 TAKE ONE TABLET BY MOUTH EVERY DAY Advair Diskus inhalation disk with device 250-50 mcg/dose 08/05/2014 11/03/2014 INHALE ONE DOSE BY MOUTH TWICE DAILY IN THE MORNING AND EVENING APPROXIMATELY 12 HOURS APART simvastatin oral tablet 80 mg 08/08/2014 TAKE ONE TABLET BY MOUTH AT BEDTIME Klor-Con M10 oral tablet,ER particles/crystals 10 mEq 10/03/2014 TAKE TWO TABLETS BY MOUTH ONCE DAILY WITH FOOD Name Start Date Expiration Date SIG Comments Advair Diskus Inhalation Disk with Device 250-50 mcg/dose 03/16/20122011 INHALE ONE DOSE BY MOUTH TWICE DAILY IN THE MORNING AND EVENING APPROXIMATELY 12 HOURS APART lisinopril-hydrochlorothiazide Oral tablet 20-25 mg 09/14/2012 10/14/2012 TAKE ONE TABLET BY MOUTH EVERY DAY aspirin oral tablet,delayed release (DR/EC) 81 mg 07/27/2013 07/22/2014 take 1 tablet (81 mg) by oral route once daily Discontinued Name Start Date Discontinued Date SIG Comments Augmentin Oral Tablet 875-125 mg 07/11/2010 08/10/2010 take 1 tablet by oral route every 12 hours Voltaren Topical Gel 1 % 08/10/2010 07/27/2013 apply 4 gram to affected area(s ) by topical route 4 times per day albuterol sulfate Inhalation HFA Aerosol Inhaler 90 mcg/Actuation 02/19/2011 07/27/2013 inhale 1 - 2 puffs by inhalation route every 4 hours as needed Cialis oral tablet 20 mg 07/27/2013 09/08/2014 take 1 tablet (20 mg) by oral route once daily Problem List Description Status Onset Erectile Dysfunction Active 02/02/10 Hyperlipidemia Active Hypertension, Benign Essential Active Chronic obstructive pulmonary disease Active 02/19/2011 Obstructive Sleep Apnea Active 07/27/2013 Vital Signs Date Time BP-Sys(mm[Hg] BP-Kristy(mm[Hg]) HR(bpm) RR(rpm) Temp WT HT HC BMI BSA BMI Percentile O2 Sat(%) 09/08/2014 3:47:00 PM 130 mmHg 72 mmHg [...] 97 % Social History Name Description Comments denies alcohol use Denies illicit substance abuse Smoker 1 /2 pk / day History of Procedures Date Ordered Description Order Status 02/07/2011 12:00 AM COMPREHEN METABOLIC PANEL Reviewed 02/07/2011 12:00 AM LIPID PANEL Reviewed 02/19/2011 12:00 AM IMMUNIZATION ADMIN Reviewed [...] AM COMPLETE CBC W/AUTO DIFF WBC Returned 01/25/2010 12:00 AM COMPREHEN METABOLIC PANEL Reviewed 01/25/2010 12:00 AM LIPID PANEL Reviewed 02/10/2013 12:00 AM CHEST X-RAY 2VW FRONTAL&LATL Returned 08/03/2010 12:00 AM COMPREHEN METABOLIC PANEL Reviewed 08/03/2010 12:00 AM LIPID PANEL Reviewed 02/18/2014 12:00 AM COMPLETE CBC W/AUTO [...] BILI 0.50 mg/dLCALCIUM 9.80 mg/dLeGFR >60 mL/min/1.73 [id number] 164.0 mg/dLCHOLESTEROL 125.0 mg/dLHDL 26.0 mg/dLLDL (CALC) [...] BILI 0.20 mg/dLCALCIUM 10.10 mg/dLeGFR >60 mL/min/1.73 [id number] 155.0 mg/dLCHOLESTEROL 109.0 mg/dLHDL 33.0 mg/dLLDL (CALC) [...] 118.0 mg/dLHDL 40.0 mg/dLLDL (CALC) 65.0 mg/dL History Of Immunizations Name Date Admin [...] 4:40PM Hyperlipidemia Jul 25 2009 4:40PM Chronic obstructive pulmonary disease 02/19/2011 Obstructive Sleep Apnea 07/27/2013 Hyperlipidemia Feb [...] Hypertension, Benign Essential Sep 08 2014 3:53PM Payers Insurance Name Company Name Plan Name Plan Number Policy Number Policy Group Number Start Date Cigna Cigna [id number] N/A Preferred Health Care [facility] [id number] April AHA/[facility] AHA/ [facility] [id number] Wednesday, April 28, 2010 [facility] [id number] N/A History of Encounters Visit Date Visit Type Provider 09/08/2014 Office visit Arely Meng MD 02/23/2014 [...]
--- OUTSIDE RECORDS SUMMARY | 2018-07-01 10:57 | XMS REPORT ---
Author Author Arely Meng Organization [facility] Address [address] [place], [place] [address] Care Team Providers Care Environmental Health Safety Engineer Name Role Phone Arely Meng PCP Allergies and Adverse Reactions Name Reaction Notes NO KNOWN DRUG ALLERGIES Plan of Treatment Planned Activity Comments Planned Date Planned Time Plan/Goal COMPLETE CBC W/AUTO DIFF WBC 04/10/2015 12:00 AM COMPREHEN METABOLIC PANEL 04/10/2015 12:00 AM LIPID PANEL 04/10/2015 12:00 AM Medications Active Name Start Date [...] BILI 0.50 mg/dLCALCIUM 9.80 mg/dLeGFR >60 mL/min/1.73 [id number] 164.0 mg/dLCHOLESTEROL 125.0 mg/dLHDL 26.0 mg/dLLDL (CALC) [...] BILI 0.20 mg/dLCALCIUM 10.10 mg/dLeGFR >60 mL/min/1.73 [id number] 155.0 mg/dLCHOLESTEROL 109.0 mg/dLHDL 33.0 mg/dLLDL (CALC) [...] 11:15AM Hyperlipidemia, unspecified Apr 10 2015 11:15AM Payers Insurance Name Company Name Plan Name Plan Number Policy Number Policy Group Number Start Date Cigna Cigna [id number] N/A Preferred Health Care [facility] [id number] April AHA/[facility] AHA/ [facility] [id number] Wednesday, 2010 [facility] [id number] N/A History of Encounters Visit Date Visit [...]
--- OUTSIDE RECORDS SUMMARY | 2018-07-01 10:57 | XMS REPORT ---
Author Author Arely Meng Organization [facility] Address [address] [place], [place] [address] Care Team Providers Care Banding Machine Operator Name Role Phone Arely Meng PCP [...] Returned 05/28/2011 12:00 AM LIPID PANEL Returned 01/29/2016 12:00 AM GLYCOSYLATED HEMOGLOBIN TEST Returned [...] Policy Group Number Start Date Melida Montez [id number] N/A Preferred Health Care [facility] [id number] April AHA/[facility] AHA/ [facility] [id number] Wednesday, 2010 [facility] [id number] N/A Cigna Cigna [id number] N/A Cigna Cigna [id number] N/A [facility] Occupational Medicine [id number] N/A History of Encounters Visit Date Visit [...]
--- OUTSIDE RECORDS SUMMARY | 2018-07-01 10:58 | XMS REPORT | Continuity of Care Document ---
Author Author [facility] / [facility] Address Unknown Phone Unavailable Allergies Active Description Code Type Severity Reaction Onset Reported/Identified Relationship to Patient Clinical Status Yes No Known Drug Allergies [id number] N/A N/A Yes No Allergy Information Available [id number] Drug Allergy Unknown N/A 2015 Medications There is no data. Problems Date Dx Coded Attending Type Code Diagnosis Diagnosed By 07/31/2015 BELIA AHMADI DO Ot G47.33 07/31/2015 BELIA AHMADI DO Ot R06.00 07/31/2015 BELIA AHMADI DO Ot Z72.0 08/21/2015 BELIA AHMADI DO Ot G47.33 OBSTRUCTIVE SLEEP APNEA (ADULT) (PEDIATR 08/21/2015 BELIA AHMADI DO Ot R06.00 DYSPNEA, UNSPECIFIED 08/21/2015 BELIA AHMADI DO Ot Z72.0 TOBACCO USE 09/01/2015 BELIA AHMADI DO Ot G47.33 OBSTRUCTIVE SLEEP APNEA (ADULT) (PEDIATR 09/01/2015 BELIA AHMADI DO Ot R06.00 DYSPNEA, UNSPECIFIED 09/01/2015 BELIA AHMADI DO Ot Z72.0 TOBACCO USE 09/11/2015 BELIA AHMADI DO Ot G47.33 OBSTRUCTIVE SLEEP APNEA (ADULT) (PEDIATR 09/11/2015 BELIA AHMADI DO Ot R06.00 DYSPNEA, UNSPECIFIED 09/11/2015 BELIA AHMADI DO Ot Z72.0 TOBACCO USE 09/12/2015 BELIA AHMADI DO Ot G47.33 OBSTRUCTIVE SLEEP APNEA (ADULT) (PEDIATR 09/12/2015 BELIA AHMADI DO Ot J43.9 EMPHYSEMA, UNSPECIFIED 09/12/2015 BELIA AHMADI DO Ot R06.00 DYSPNEA, UNSPECIFIED 09/12/2015 BELIA AHMADI DO Ot R06.2 WHEEZING 09/12/2015 BELIA AHMADI DO Ot R53.83 OTHER FATIGUE 09/12/2015 GALDINO DOBELIA Ot R63.4 ABNORMAL WEIGHT LOSS 09/12/2015 GALDINO DOBELIA M Ot Z72.0 TOBACCO USE 09/12/2015 BELIA AHMADI DO Ot G47.33 OBSTRUCTIVE SLEEP APNEA (ADULT) (PEDIATR 09/12/2015 BELIA AHMADI DO Ot J43.9 EMPHYSEMA, UNSPECIFIED 09/12/2015 BELIA AHMADI DO Ot R06.00 DYSPNEA, UNSPECIFIED 09/12/2015 GALDINO DOBELIA M Ot R06.2 WHEEZING 09/12/2015 GALDINO DOBELIA M Ot R53.83 OTHER FATIGUE 09/12/2015 GALDINO BELIA ARIZMENDI M Ot R63.4 ABNORMAL WEIGHT LOSS 09/12/2015 BELIA AHMADI DO Ot Z72.0 TOBACCO USE 09/29/2015 BELIA AHMADI DO Ot G47.33 OBSTRUCTIVE SLEEP APNEA (ADULT) (PEDIATR 09/29/2015 BELIA AHMADI DO Ot J43.9 EMPHYSEMA, UNSPECIFIED 09/29/2015 BELIA AHMADI DO Ot R06.00 DYSPNEA, UNSPECIFIED 09/29/2015 GALDINO DOBELIA M Ot R06.2 WHEEZING 09/29/2015 GALDINO BELIA ARIZMENDI M Ot R53.83 OTHER FATIGUE 09/29/2015 BELIA AHMADI DO Ot R63.4 ABNORMAL WEIGHT LOSS 09/29/2015 BELIA AHMADI DO Ot Z72.0 TOBACCO USE 04/06/2018 BELIA AHMADI DO Ot G47.33 OBSTRUCTIVE SLEEP APNEA (ADULT) (PEDIATR 04/06/2018 BELIA AHMADI DO Ot R06.00 DYSPNEA, UNSPECIFIED 04/06/2018 GALDINO DOBELIA M Ot Z72.0 TOBACCO USE 04/06/2018 BELIA AHMADI DO M Ot G47.33 OBSTRUCTIVE SLEEP APNEA (ADULT) (PEDIATR 04/06/2018 GALDINO DOBELIA Ot J43.9 EMPHYSEMA, UNSPECIFIED 04/06/2018 GALDINO DOBELIA M Ot R06.00 DYSPNEA, UNSPECIFIED 04/06/2018 GALDINO DOBELIA M Ot R06.2 WHEEZING 04/06/2018 GALDINO BELIA ARIZMENDI M Ot R53.83 OTHER FATIGUE 04/06/2018 BELIA AHMADI DO M Ot R63.4 ABNORMAL WEIGHT LOSS 04/06/2018 GALDINO DOARMANIBELIA M Ot Z72.0 TOBACCO USE 04/13/2018 RODOLFO LORENZO BUSINESS OBJECTS ARCHITECT Ot G47.33 OBSTRUCTIVE SLEEP APNEA (ADULT) (PEDIATR 04/13/2018 KUMAR LORENZOINE Adela BUSINESS OBJECTS ARCHITECT Ot J43.9 EMPHYSEMA, UNSPECIFIED 04/13/2018 BJRODOLFO CARR BUSINESS OBJECTS ARCHITECT Ot Z72.0 TOBACCO USE 05/01/2018 RODOLFO LORENZO BUSINESS OBJECTS ARCHITECT Ot G47.33 OBSTRUCTIVE SLEEP APNEA (ADULT) (PEDIATR 05/01/2018 RODOLFO LORENZO BUSINESS OBJECTS ARCHITECT Ot J43.9 EMPHYSEMA, UNSPECIFIED 05/01/2018 BJRODOLFO CARR BUSINESS OBJECTS ARCHITECT Ot Z72.0 TOBACCO USE 06/12/2018 GALDINO DOARMANIBELIA M Ot G47.33 OBSTRUCTIVE SLEEP APNEA (ADULT) (PEDIATR 06/12/2018 GALDINO DOARMANIBELIA M Ot R06.00 DYSPNEA, UNSPECIFIED 06/12/2018 GALDINO DOARMANIBELIA M Ot Z72.0 TOBACCO USE 06/12/2018 ARMANI AHMADI DOSON M Ot G47.33 OBSTRUCTIVE SLEEP APNEA (ADULT) (PEDIATR 06/12/2018 GALDINO DOARMANIBELIA M Ot J43.9 EMPHYSEMA, UNSPECIFIED 06/12/2018 GALDINO DOARMANIBELIA M Ot R06.00 DYSPNEA, UNSPECIFIED 06/12/2018 ARMANI AHMADI DOSON M Ot R06.2 WHEEZING 06/12/2018 ARMANI AHMADI DOSON M Ot R53.83 OTHER FATIGUE 06/12/2018 BELIA AHMADI DO M Ot R63.4 ABNORMAL WEIGHT LOSS 06/12/2018 ARMANI AHMADI DOSON M Ot Z72.0 TOBACCO USE 06/12/2018 RODOLFO LORENZO BUSINESS OBJECTS ARCHITECT Ot G47.33 OBSTRUCTIVE SLEEP APNEA (ADULT) (PEDIATR 06/12/2018 RODOLFO LORENZO BUSINESS OBJECTS ARCHITECT Ot J43.9 EMPHYSEMA, UNSPECIFIED 06/12/2018 RODOLFO LORENZO APRN Ot Z72.0 TOBACCO USE 06/15/2018 KANG JEAN BAPTISTE MD Ot E78.2 MIXED HYPERLIPIDEMIA 06/15/2018 KANG JEAN BAPTISTE MD Ot I25.10 ATHSCL HEART DISEASE OF [place] CORONARY 06/15/2018 KANG JEAN BAPTISTE MD Ot I35.0 NONRHEUMATIC AORTIC (VALVE) STENOSIS 06/15/2018 KANG JEAN BAPTISTE MD Ot J43.9 EMPHYSEMA, UNSPECIFIED 06/15/2018 KANG JEAN BAPTISTE MD J Ot R06.00 DYSPNEA, UNSPECIFIED 06/15/2018 KANG JEAN BAPTISTE MD J Ot Z72.0 TOBACCO USE 06/17/2018 KANG JEAN BAPTISTE MD Ot E78.2 MIXED HYPERLIPIDEMIA 06/17/2018 KANG JEAN BAPTISTE MD J Ot I25.10 ATHSCL HEART DISEASE OF [place] CORONARY 06/17/2018 KANG JEAN BAPTISTE MD Ot J43.9 EMPHYSEMA, UNSPECIFIED 06/17/2018 KANG JEAN BAPTISTE MD J Ot R06.00 DYSPNEA, UNSPECIFIED 06/17/2018 KANG JEAN BAPTISTE MD J Ot Z72.0 TOBACCO USE 06/21/2018 KANG JEAN BAPTISTE MD Ot E78.2 MIXED HYPERLIPIDEMIA 06/21/2018 KANG JEAN BAPTISTE MD J Ot I25.10 ATHSCL HEART DISEASE OF [place] CORONARY 06/21/2018 KANG JEAN BAPTISTE MD Ot J43.9 EMPHYSEMA, UNSPECIFIED 06/21/2018 KANG JEAN BAPTISTE MD Ot R06.00 DYSPNEA, UNSPECIFIED 06/21/2018 KANG JEAN BAPTISTE MD Ot Z72.0 TOBACCO USE 06/24/2018 KANG JEAN BAPTISTE MD Ot E78.2 MIXED HYPERLIPIDEMIA 06/24/2018 KANG JEAN BAPTISTE MD Ot I25.10 ATHSCL HEART DISEASE OF [place] CORONARY 06/24/2018 KANG JEAN BAPTISTE MD Ot I35.0 NONRHEUMATIC AORTIC (VALVE) STENOSIS 06/24/2018 KANG JEAN BAPTISTE MD Ot J43.9 EMPHYSEMA, UNSPECIFIED 06/24/2018 KANG JEAN BAPTISTE MD J Ot R06.00 DYSPNEA, UNSPECIFIED 06/24/2018 KANG JEAN BAPTISTE MD Ot Z72.0 TOBACCO USE 06/29/2018 KANG JEAN BAPTISTE MD Ot E78.2 MIXED HYPERLIPIDEMIA 06/29/2018 KANG JEAN BAPTISTE MD J Ot I25.10 ATHSCL HEART DISEASE OF [place] CORONARY 06/29/2018 KANG JEAN BAPTISTE MD Ot J43.9 EMPHYSEMA, UNSPECIFIED 06/29/2018 KANG JEAN BAPTISTE MD J Ot R06.00 DYSPNEA, UNSPECIFIED 06/29/2018 KANG JEAN BAPTISTE MD Ot Z72.0 TOBACCO USE Procedures There is no data. Results There is no data. Encounters ACCT No. Visit Date/Time Discharge Status Pt. Type Provider Facility Loc./Unit Complaint [id number] 08/21/2017 17:03:11 08/21/2017 23:59:59 CLS Outpatient Arely Meng [id number] 07/09/2017 16:43:16 07/09/2017 23:59:59 CLS Outpatient Tu Denney [id number] 02/18/2017 16:52:19 02/18/2017 23:59:59 CLS Outpatient RidArely galeas [id number] 08/21/2016 16:14:26 08/21/2016 23:59:59 CLS Outpatient Arely Meng [id number] 07/24/2016 15:04:26 07/24/2016 23:59:59 CLS Outpatient RidArely galeas [id number] 07/24/2016 14:53:17 07/24/2016 23:59:59 CLS Outpatient RidArely galeas [id number] 07/24/2016 14:18:51 07/24/2016 23:59:59 CLS Outpatient Alexandra Rodriguez [id number] 01/17/2016 16:38:34 01/17/2016 23:59:59 CLS Outpatient Arely Meng [id number] 04/13/2015 16:03:35 04/13/2015 23:59:59 CLS Outpatient RidArely galeas [id number] 12/05/2014 21:28:20 12/05/2014 23:59:59 CLS Outpatient RidArely galeas [id number] 02/23/2014 12:28:45 02/23/2014 23:59:59 CLS Outpatient RiddelArely [id number] 07/27/2013 15:40:59 07/27/2013 23:59:59 CLS Outpatient RiddelArely [id number] 06/15/2018 07:08:00 06/15/2018 23:59:59 CLS Outpatient KANG JEAN BAPTISTE MD [facility] CARD CAD [id number] 06/12/2018 08:57:00 06/12/2018 23:59:59 CLS Outpatient KANG JEAN BAPTISTE MD [facility] CARD CAD [id number] 05/01/2018 10:22:00 05/01/2018 23:59:59 CLS Preadmit RODOLFO LORENZO APRN [facility] RAD SMOKER,COPD [id number] 04/10/2018 12:18:00 04/10/2018 23:59:59 CLS Outpatient RODOLFO LORENZO APRN [facility] RAD COPD WITH EMPHYSEMA ,DYSPNEA,FATIGUE,TOBACCO USER [id number] 03/16/2018 09:17:00 03/16/2018 23:59:59 CLS Preadmit RODOLFO LORENZO APRN [facility] PULM COPD WITH EMPHYSEMA, DYSPNEA,FATIGUE,TOBACCO USER [id number] 09/11/2015 06:52:00 09/11/2015 23:59:59 CLS Outpatient BELIA AHMADI DO [facility] RAD COPD,FATIGUE,DYSPNEA [id number] 07/17/2015 14:50:00 07/17/2015 23:59:59 CLS Outpatient BELIA AHMADI DO [facility] RT DYSPNEA,AJ [id number] 07/01/2018 10:36:00 ACT Outpatient ITA APODACA, KANG Spence [facility] CATH ABN STRESS [id number] 12/16/2017 08:32:45 Document Registration [id number] 08/20/2017 05:10:11 Document Registration [id number] 08/13/2017 09:47:44 Document Registration
[2018-07-01] MEDS ORDERED: NS IV 1000 ML 1,000 ML IV SCH ×2 (11:14→12:56)
[2018-07-01 11:22] LABS: RED CELL DISTRIBUTION WIDTH 13.8 % (10.0-14.5); WHITE BLOOD COUNT 7.7 10^3/uL (4.3-11.0)
[2018-07-01 11:37] LABS: PROTHROMBIN TIME PATIENT 12.9 SEC (12.2-14.7)
[2018-07-01 11:43] LABS: ALANINE AMINOTRANSFERASE 27 U/L (0-55); ALBUMIN 4.5 GM/DL (3.2-4.5); ALKALINE PHOSPHATASE 108 U/L (40-136); BILIRUBIN,TOTAL 0.5 MG/DL (0.1-1.0); BUN/CREATININE RATIO 22; CALCIUM 10.1 MG/DL (8.5-10.1); CARBON DIOXIDE 26 MMOL/L (21-32); CHLORIDE 106 MMOL/L (98-107); CHOLESTEROL 127 MG/DL (< 200); CREATININE SERUM 1.06 MG/DL (0.60-1.30); GFR ESTIMATED > 60; GLUCOSE 90 MG/DL (70-105); HDL CHOLESTEROL 41 MG/DL (40-60); POTASSIUM 3.9 MMOL/L (3.6-5.0); SODIUM 139 MMOL/L (135-145); TOTAL PROTEIN 7.5 GM/DL (6.4-8.2); TRIGLYCERIDES 71 MG/DL (<150); VLDL CHOLESTEROL 14 MG/DL (5-40)
--- NOTE | 2018-07-01 11:50 | Diagnostic Imaging Report ---
INDICATION: Preop for heart catheterization. TIME OF EXAMINATION: 11:22 AM. COMPARISON: 07/17/2015. FINDINGS: The lungs appear to be hyperinflated, consistent with COPD. The heart size is stable. The lungs are clear. No infiltrate is detected. No effusion or pneumothorax is identified. IMPRESSION: COPD. No acute cardiopulmonary process is detected. Dictated by: Dictated on workstation # [id number]
[2018-07-01] MEDS ORDERED: SIMV80TA21 PO (12:08)
[2018-07-01] MEDS ORDERED: POTA10TA36 PO (12:08)
[2018-07-01] MEDS ORDERED: AMLO5TAB9 PO (12:09)
[2018-07-01] MEDS ORDERED: LISI1TAB10 PO (12:09)
--- NOTE | 2018-07-01 12:09 | Cardiac Procedure Note-CS/ASA ---
Pre-Procedure Note Pre-Op Procedure Note H&P Reviewed The H&P was reviewed, patient examined and no changes noted. Date H&P Reviewed: Jul 01, 2018 Time H&P Reviewed: 12:09 Conscious Sedation Pre-Proced Time 12:09 ASA Score 3 For ASA 3 and 4: Consider anesthesia and medical clearance. Also, for patients with a history of failed moderate sedation consider anesthesia. Airway Lungs Heart ASA score ASA 1: a normal healthy patient ASA 2: a patient with a mild systemic disease (mid diabetes, controlled hypertension, obesity x ASA 3: a patient with a severe systemic disease that limits activity (angina , COPD, prior Myocardial infarction) ASA 4: a patient with an incapacitating disease that is a constant threat to life (CHF, renal failure) ASA 5: a moribund patient not expected to survive 24 hrs. (ruptured aneurysm) ASA 6: a declared brain- patient whose organs are being harvested. For emergent operations, add the letter E after the classification Mallampati Classification Grade 3 Sedation Plan Analgesia, Amnesia, Plan communicated to team members, Discussed options with patient/fam, Discussed risks with patient/fam The patient is an appropriate candidate to undergo the planned procedure, sedation, and anesthesia. The patient immediately re-assessed prior to indication. KANG JEAN BAPTISTE MD Jul 01, 2018 12:09
[2018-07-01] MEDS ORDERED: MONT10TA24 PO (12:10)
[2018-07-01] MEDS ORDERED: FLUT9.9S NS (12:10)
[2018-07-01] MEDS ORDERED: FLUT1DIS26 IH (12:11)
[2018-07-01] MEDS ORDERED: ASPI81TA55 PO (12:12)
[2018-07-01] MEDS ORDERED: TIOT18CA2 IH (12:12)
[2018-07-01] MEDS ORDERED: RT-ALBUINH INH (12:13)
--- NOTE | 2018-07-01 12:14 | NUR ---
Patient has medication bottles in car. Patient brought a medication list in and stated how he took his medications.
[2018-07-01] MEDS ORDERED: FLU QUADRIvalent (5+ YOA) 2018-2019 (AFLURIA) 0.5 ML IM ONE (12:15)
[2018-07-01] MEDS ORDERED: fentaNYL INJECTION 100 MCG/2 ML AMP ONE (12:27)
[2018-07-01] MEDS ORDERED: MIDAZOLAM 5 MG/5 ML (VERSED) VIAL ONE (12:27)
--- NOTE | 2018-07-01 12:58 | Discharge Inst-Post CATH ---
Discharge Inst-CATH/EP Post Cardiac Cath/EP D/C Inst Follow Up/Plan Appointment with Dr. Escobar's office in 2-4 weeks CARDIAC CATH DISCHARGE INSTRUCTIONS *Hold Metformin for 48 hours post heart cath. ACTIVITY * Go Home directly and rest. * Limit activity of the leg (or wrist if it was used) for 7 days including aerobics, swimming, jogging, bicycling, etc. * Restrict stair-climbing for 7 days if possible, if not, climb up with your non -cath leg, then bring together on the same step. * Avoid lifting, pushing, pulling or excessive movement of the affected extremity for 7 days. * Customary sexual activity may be resumed after 2 days-use caution not to use a position that strains or causes pain to the affected extremity. * No driving for 24 hours. * NO SMOKING. * Avoid straining for bowel movements for 7 days. * Gentle walking on level ground is allowed. * Returning to work will depend on the type of procedure and the results. Your doctor will discuss this with you. CALL YOUR DOCTOR FOR ANY OF THE FOLLOWING: *If bleeding from the puncture site occurs- Apply gentle pressure to site with clean cloth and call your doctor or EMS. * If a knot or lump forms under the skin, increases in size, or causes pain. * If bruising appears to be worsening or moving further down your leg instead of disappearing. * Temperature above 101 F. CARE OF YOUR GROIN INCISION; * Bruising or purple discoloration of the skin near the puncture site is common. * You may shower only, no bathtub bathing for 5 days. Be careful to avoid slipping as your leg may feel stiff. * If a closure device was used on your femoral artery, please see the attached guide regarding care of the device and your leg. * Leave the dressing on, until removed by office staff. CARE OF YOUR WRIST INCISION; * Bruising or purple discoloration of the skin near the puncture site is common. * You may shower. * DO NOT submerge wrist. * Leave dressing on, until removed by office staff.. KANG ESCOBAR MD Jul 01, 2018 12:58
[2018-07-01] MEDS ORDERED: PATIENT MAY USE OWN MEDS, ALL PO SCH (13:00)
--- NOTE | 2018-07-01 13:04 | Cardiac Cath Report ---
Cardiac Cath Report Physician (s)/Plunger Machine Operator (s) Physician KANG JEAN BAPTISTE MD Pre-Procedure Diagnosis Pre-Procedure Diagnosis: coronary artery disease Post-Procedure Note Procedure Start Date: Jul 01, 2018 Name of Procedure: left heart catheterization Aortic root angiogram Findings/Procedure Note PROCEDURE NOTE: After explaining the procedure to the patient, all pros and cons were explained , all questions were answered. The patient signed the consent and then he was placed on the cardiac catheterization laboratory. Groin was prepped SL fashion local anesthesia was used. Sheath placed in the right femoral artery, Elio left was used to access the left coronary system, I was unable to intubate the right coronary artery with a Elio right but prolapse the Elio right to the left ventricular cavity and pressure was measured, pullback LV to aorta was done. Then I advanced a pigtail catheter to the aortic root and aortic root angiogram was done then I used WM catheter advanced to the right coronary artery intubated the right coronary artery and angina gram was done. At the end of the procedure and minx device deployed FINDINGS: Hemodynamics LV 118/18, end-diastolic pressure of 18 Aorta 126/71 mean of 77 ANATOMY: Left Main is free of obstructive disease Left Anterior Descending is free of obstructive disease Left Circumflex as mild disease nonobstructive Right Coronory Artery has mild disease nonobstructive disease LV Gram was not done, pressure was measured Aorta evaluation done with aortic root angiogram which showed normal aortic root , no dissection or aneurysm, normal aortic valve. Slightly superior and posterior origin of the right coronary artery CONCLUSION: 1. Mild coronary artery disease nonobstructive disease 2. Normal left ventricular end-diastolic pressure 3. Normal aortic root and aortic DISCUSSION AND RECOMMENDATION: medical therapy Anesthesia Type: Conscious Sedation Estimated blood loss (mL): 25 ml Contrast Amount: 75 ml Total Radiation Dose: 229 mGy Post-Procedure Diagnosis Post-operative diagnosis: Coronary artery disease Chest pain Hypertension Hyperlipidemia KANG JEAN BAPTISTE MD Jul 01, 2018 13:04
== END 2018-07-01 17:30 | disposition home or self-care (01) ==
LOC: CATH 10:36 → SDC 13:42 → CATH 17:30
PROVIDERS: ATTEND Internal Medicine Cardiovascular Disease
DX: I25.10 Atherosclerotic heart disease of native coronary artery without angina pectoris (principal); I10 Essential (primary) hypertension; E78.2 Mixed hyperlipidemia; G47.30 Sleep apnea, unspecified; F17.210 Nicotine dependence, cigarettes, uncomplicated; I65.23 Occlusion and stenosis of bilateral carotid arteries; J44.9 Chronic obstructive pulmonary disease, unspecified; M19.91 Primary osteoarthritis, unspecified site; J30.1 Allergic rhinitis due to pollen; Z79.899 Other long term (current) drug therapy
CPT/HCPCS: 36415; 71045; 80053; 80061; 85027; 85610; 85730; 87081; 93458; 93567

== ENCOUNTER 2018-07-04 23:09 | Emergency (ER) | payer OTHER ==
[~2018-07-04] VITALS: Ht 177.8 cm; Wt 86.2 kg
[~2018-07-04 23:09] MED LIST changes: +AMLO5TAB9 PO; +ASPI81TA55 PO; -CATHETER FLUSH 10 ML SYR IV PRN; +FLUT1DIS26 IH; +FLUT9.9S NS; +LISI1TAB10 PO; +MONT10TA24 PO; +POTA10TA36 PO; +RT-ALBUINH INH; +SIMV80TA21 PO; +TIOT18CA2 IH
--- OUTSIDE RECORDS SUMMARY | 2018-07-04 23:30 | XMS REPORT | Continuity of Care Document ---
Author Author [facility] Address Unknown Phone Unavailable Allergies Active Description Code Type Severity Reaction Onset Reported/Identified Relationship to Patient Clinical Status Yes No Known Drug Allergies [id number] N/A N/A Yes No Allergy Information Available [id number] Drug Allergy Unknown N/A 2015 Medications There [...] Ot Z72.0 TOBACCO USE 04/13/2018 RODOLFO LORENZO YARDER ENGINEER Ot G47.33 OBSTRUCTIVE SLEEP APNEA (ADULT) (PEDIATR 04/13/2018 KUMAR LORENZOINE Adela YARDER ENGINEER Ot J43.9 EMPHYSEMA, UNSPECIFIED 04/13/2018 BJRODOLFO CARR YARDER ENGINEER Ot Z72.0 TOBACCO USE 05/01/2018 RODOLFO LORENZO YARDER ENGINEER Ot G47.33 OBSTRUCTIVE SLEEP APNEA (ADULT) (PEDIATR 05/01/2018 RODOLFO LORENZO YARDER ENGINEER Ot J43.9 EMPHYSEMA, UNSPECIFIED 05/01/2018 BJRODOLFO CARR YARDER ENGINEER Ot Z72.0 TOBACCO USE 06/12/2018 GALDINO DOARMANIBELIA [...] Ot Z72.0 TOBACCO USE 06/12/2018 RODOLFO LORENZO YARDER ENGINEER Ot G47.33 OBSTRUCTIVE SLEEP APNEA (ADULT) (PEDIATR 06/12/2018 RODOLFO LORENZO YARDER ENGINEER Ot J43.9 EMPHYSEMA, UNSPECIFIED 06/12/2018 RODOLFO LORENZO APRN Ot Z72.0 TOBACCO USE 06/15/2018 KANG JEAN BAPTISTE MD Ot E78.2 MIXED HYPERLIPIDEMIA 06/15/2018 KANG JEAN BAPTISTE MD Ot I25.10 ATHSCL HEART DISEASE OF [place] CORONARY 06/15/2018 KANG JEAN BAPTISTE MD Ot I35.0 NONRHEUMATIC AORTIC (VALVE) STENOSIS 06/15/2018 KANG JEAN BAPTISTE MD Ot J43.9 EMPHYSEMA, UNSPECIFIED 06/15/2018 KANG JEAN BAPTISTE MD J Ot R06.00 DYSPNEA, UNSPECIFIED 06/15/2018 KANG JEAN BAPTISTE MD J Ot Z72.0 TOBACCO USE 06/17/2018 KANG JEAN BAPTISTE MD Ot E78.2 MIXED HYPERLIPIDEMIA 06/17/2018 KANG JEAN BAPTISTE MD J Ot I25.10 ATHSCL HEART DISEASE OF [place] CORONARY 06/17/2018 KANG JEAN BAPTISTE MD Ot J43.9 EMPHYSEMA, UNSPECIFIED 06/17/2018 KANG JEAN BAPTISTE MD J Ot R06.00 DYSPNEA, UNSPECIFIED 06/17/2018 KANG JEAN BAPTISTE MD J Ot Z72.0 TOBACCO USE 06/21/2018 KANG JEAN BAPTISTE MD Ot E78.2 MIXED HYPERLIPIDEMIA 06/21/2018 KANG JEAN BAPTISTE MD J Ot I25.10 ATHSCL HEART DISEASE OF [place] CORONARY 06/21/2018 KANG JEAN BAPTISTE MD Ot J43.9 EMPHYSEMA, UNSPECIFIED 06/21/2018 KANG JEAN BAPTISTE MD Ot R06.00 DYSPNEA, UNSPECIFIED 06/21/2018 KANG JEAN BAPTISTE MD Ot Z72.0 TOBACCO USE 06/24/2018 KANG JEAN BAPTISTE MD Ot E78.2 MIXED HYPERLIPIDEMIA 06/24/2018 KANG JEAN BAPTISTE MD Ot I25.10 ATHSCL HEART DISEASE OF [place] CORONARY 06/24/2018 KANG JEAN BAPTISTE MD Ot I35.0 NONRHEUMATIC AORTIC (VALVE) STENOSIS 06/24/2018 KANG JEAN BAPTISTE MD Ot J43.9 EMPHYSEMA, UNSPECIFIED 06/24/2018 KANG JEAN BAPTISTE MD J Ot R06.00 DYSPNEA, UNSPECIFIED 06/24/2018 KANG JEAN BAPTISTE MD Ot Z72.0 TOBACCO USE 06/29/2018 KANG JEAN BAPTISTE MD Ot E78.2 MIXED HYPERLIPIDEMIA 06/29/2018 KANG JEAN BAPTISTE MD J Ot I25.10 ATHSCL HEART DISEASE OF [place] CORONARY 06/29/2018 KANG JEAN BAPTISTE MD Ot J43.9 EMPHYSEMA, UNSPECIFIED 06/29/2018 KANG JEAN BAPTISTE MD J Ot R06.00 DYSPNEA, UNSPECIFIED 06/29/2018 KANG JEAN BAPTISTE MD Ot Z72.0 TOBACCO USE 07/02/2018 KANG JEAN BAPTISTE MD, Ot E78.2 MIXED HYPERLIPIDEMIA 07/02/2018 KANG JEAN BAPTISTE MD, Ot F17.210 NICOTINE DEPENDENCE, CIGARETTES, UNCOMPL 07/02/2018 KANG JEAN BAPTISTE MD, Ot G47.30 SLEEP APNEA, UNSPECIFIED 07/02/2018 KANG JEAN BAPTISTE MD Ot I10 ESSENTIAL (PRIMARY) HYPERTENSION 07/02/2018 KANG JEAN BAPTISTE MD, Ot I25.10 ATHSCL HEART DISEASE OF [place] CORONARY 07/02/2018 KANG JEAN BAPTISTE MD, Ot I65.23 OCCLUSION AND STENOSIS OF BIL[place]AL [place] 07/02/2018 KANG JEAN BAPTISTE MD, Ot J30.1 ALLERGIC RHINITIS DUE TO POLLEN 07/02/2018 KANG JEAN BAPTISTE MD, Ot J44.9 CHRONIC OBSTRUCTIVE PULMONARY DISEASE, U 07/02/2018 KANG JEAN BAPTISTE MD, Ot M19.91 PRIMARY OSTEOARTHRITIS, UNSPECIFIED SITE 07/02/2018 KANG JEAN BAPTISTE MD, Ot Z79.899 OTHER SNF (CURRENT) DRUG THERAPY Procedures There is no data. Results Test Result Range Automated blood complete blood count (hemogram) panel - 07/01/18 11:11 Blood leukocytes automated count (number/volume) 7.7 10*3/uL 4.3-11.0 Blood erythrocytes automated count (number/volume) 5.11 10*6/uL 4.35-5.85 Venous blood hemoglobin measurement (mass/volume) 16.0 g/dL 13.3-17.7 Blood hematocrit (volume fraction) 48 % 40-54 Automated erythrocyte mean corpuscular volume 93 [foz_us] 80-99 Automated erythrocyte mean corpuscular hemoglobin (mass per erythrocyte) 31 pg 25-34 Automated erythrocyte mean corpuscular hemoglobin concentration measurement ( mass/volume) 34 g/dL 32-36 Automated erythrocyte distribution width ratio 13.8 % 10.0-14.5 Automated blood platelet count (count/volume) 268 10*3/uL 130-400 Automated blood platelet mean volume measurement 9.0 [foz_us] 7.4-10.4 PT panel in platelet poor plasma by coagulation assay - 07/01/18 11:11 Prothrombin time (PT) in platelet poor plasma by coagulation assay 12.9 s 12.2-14.7 INR in platelet poor plasma or blood by coagulation assay 1.0 0.8-1.4 Activated partial thromboplastin time (aPTT) in platelet poor plasma bycoagulation assay - 07/01/18 11:11 Activated partial thromboplastin time (aPTT) in platelet poor plasma bycoagulation assay 37 s 24-35 Comprehensive metabolic panel - 07/01/18 11:11 Serum or plasma sodium measurement (moles/volume) 139 mmol/L 135-145 Serum or plasma potassium measurement (moles/volume) 3.9 mmol/L 3.6-5.0 Serum or plasma chloride measurement (moles/volume) 106 mmol/L 98-107 Carbon dioxide 26 mmol/L 21-32 Serum or plasma anion gap determination (moles/volume) 7 mmol/L 5-14 Serum or plasma urea nitrogen measurement (mass/volume) 23 mg/dL 7-18 Serum or plasma creatinine measurement (mass/volume) 1.06 mg/dL 0.60-1.30 Serum or plasma urea nitrogen/creatinine mass ratio 22 NRG Serum or plasma creatinine measurement with calculation of estimated glomerular filtration rate > NRG Serum or plasma glucose measurement (mass/volume) 90 mg/dL 70-105 Serum or plasma calcium measurement (mass/volume) 10.1 mg/dL 8.5-10.1 Serum or plasma total bilirubin measurement (mass/volume) 0.5 mg/dL 0.1-1.0 Serum or plasma alkaline phosphatase measurement (enzymatic activity/volume) 108 U/L 40-136 Serum or plasma aspartate aminotransferase measurement (enzymatic activity/ volume) 27 U/L 5-34 Serum or plasma alanine aminotransferase measurement (enzymatic activity/volume ) 27 U/L 0-55 Serum or plasma protein measurement (mass/volume) 7.5 g/dL 6.4-8.2 Serum or plasma albumin measurement (mass/volume) 4.5 g/dL 3.2-4.5 CALCIUM CORRECTED 9.7 mg/dL 8.5-10.1 Lipid 1996 panel - 07/01/18 11:11 Serum or plasma triglyceride measurement (mass/volume) 71 mg/dL <150 Serum or plasma cholesterol measurement (mass/volume) 127 mg/dL < 200 Serum or plasma cholesterol in HDL measurement (mass/volume) 41 mg/ dL 40-60 Cholesterol in LDL [mass/volume] in serum or plasma by direct assay 72 mg/dL 1-129 Serum or plasma cholesterol in VLDL measurement (mass/volume) 14 mg/ dL 5-40 Methicillin resistant Staphylococcus aureus (MRSA) screening culture - 11:11 Methicillin resistant Staphylococcus aureus (MRSA) screening culture NEG NRG Encounters ACCT No. Visit Date/Time Discharge Status Pt. Type Provider Facility Loc./Unit Complaint [id number] 08/21/2017 17:03:11 08/21/2017 23:59:59 CLS Outpatient Yusra Arely [id number] 07/09/2017 16:43:16 07/09/2017 23:59:59 CLS Outpatient DenneyTu [id number] 02/18/2017 16:52:19 02/18/2017 23:59:59 CLS Outpatient Arely Meng [id number] 08/21/2016 16:14:26 08/21/2016 23:59:59 CLS Outpatient Arely Meng [id number] 07/24/2016 15:04:26 07/24/2016 23:59:59 CLS Outpatient Yusra Arely [id number] 07/24/2016 14:53:17 07/24/2016 23:59:59 CLS Outpatient Arely Meng [id number] 07/24/2016 14:18:51 07/24/2016 23:59:59 CLS Outpatient Alexandra Rodriguez [id number] 01/17/2016 16:38:34 01/17/2016 23:59:59 CLS Outpatient Arely Meng [id number] 04/13/2015 16:03:35 04/13/2015 23:59:59 CLS Outpatient Yusra Arely [id number] 12/05/2014 21:28:20 12/05/2014 23:59:59 CLS Outpatient Arely Meng [id number] 02/23/2014 12:28:45 02/23/2014 23:59:59 CLS Outpatient Yusra Arely [id number] 07/27/2013 15:40:59 07/27/2013 23:59:59 CLS Outpatient Arely Meng [id number] 07/01/2018 10:36:00 07/01/2018 17:30:00 DIS Outpatient ITA APODACA, KANG [facility] [id number] 06/15/2018 07:08:00 06/15/2018 23:59:59 CLS Outpatient KANG JEAN BAPTISTE MD [facility] CARD CAD [id number] 06/12/2018 08:57:00 06/12/2018 23:59:59 CLS Outpatient KANG JEAN BAPTISTE MD [facility] CARD CAD [id number] 05/01/2018 10:22:00 05/01/2018 23:59:59 CLS Preadmit RODOLFO LORENZO E YARDER ENGINEER [facility] RAD SMOKER,COPD [id number] 04/10/2018 12:18:00 04/10/2018 23:59:59 CLS Outpatient RODOLFO LORENZO E YARDER ENGINEER [facility] RAD COPD WITH EMPHYSEMA ,DYSPNEA,FATIGUE,TOBACCO USER [id number] 03/16/2018 09:17:00 03/16/2018 23:59:59 CLS Preadmit RODOLFO LORENZO E YARDER ENGINEER [facility] PULM COPD WITH EMPHYSEMA, DYSPNEA,FATIGUE,TOBACCO USER [id number] 09/11/2015 06:52:00 09/11/2015 23:59:59 CLS Outpatient BELIA AHMADI DO [facility] RAD COPD,FATIGUE,DYSPNEA [id number] 07/17/2015 14:50:00 07/17/2015 23:59:59 CLS Outpatient BELIA AHMADI DO [facility] RT DYSPNEA,AJ [id number] 12/16/2017 08:32:45 Document Registration [id number] 08/20/2017 05:10:11 Document Registration [id number] 08/13/2017 09:47:44 Document Registration
--- NOTE | 2018-07-05 00:50 | ED Integumentary General ---
General Chief Complaint: Skin/Wound Problems Stated Complaint: BRUISING CAUSED BY HEART CATH Source: patient Exam Limitations: no limitations History of Present Illness Date Seen by Provider: Jul 05, 2018 Time Seen by Provider: 00:16 Initial Comments Here with bruising to the right leg near the heart catheter site. Does have a nodule at the site of insertion. That hasn't changed but bruising seems to have worsened. He was instructed to return for evaluation of bruising increased. Heart catheter was Friday. Denies other concerns otherwise. Timing/Duration: yesterday, getting worse Severity: moderate Location: extremities Possible Cause: other (heart catheter procedure) Associated Symptoms: swelling/mass/lumps, other (ecchymosis) Allergies and Home Medications Allergies Coded Allergies: No Allergy Information Available (Unverified , 09/11/15) Home Medications Albuterol Sulfate 1 Puff Puff, 2 PUFF INH Q6H PRN for SHORTNESS OF BREATH, ( Reported) 1 PUFF = 90 MCG Amlodipine Besylate 5 Mg Tablet, 5 MG PO DAILY, (Reported) Aspirin 81 Mg Tablet.dr, 81 MG PO DAILY, (Reported) Fluticasone Propionate 9.9 Ml [place].susp, 1 SPRAY NS DAILY, (Reported) 1 SPRAY EACH NARE DAILY Fluticasone/Salmeterol 1 Each Blst.w.dev, 1 EACH IH BID, (Reported) Lisinopril/Hydrochlorothiazide 1 Each Tablet, 1 EACH PO DAILY, (Reported) Montelukast Sodium 10 Mg Tablet, 10 MG PO HS, (Reported) Potassium Chloride 10 Meq Tab.er.prt, 20 MEQ PO DAILY, (Reported) Simvastatin 80 Mg Tablet, 80 MG PO HS, (Reported) Tiotropium [place] 1 Inh Aerp, 2 INH IH DAILY, (Reported) Patient Home Medication List Home Medication List Reviewed: Yes Review of Systems Review of Systems Constitutional: see HPI; No chills, No fever Respiratory: no symptoms reported Cardiovascular: no symptoms reported Musculoskeletal: No joint pain; muscle pain Skin: see HPI, change in color Psychiatric/Neurological: No Symptoms Reported Past Dfkynrx-Etjqit-Zynlmn Hx Past Med/Social Hx: Reviewed Nursing Past Med/Soc Hx Patient Social History Alcohol Use: Denies Use Recreational Drug Use: No Type Used: Cigarettes Recent Foreign Travel: No Contact w/Someone Who Travel: No Recent Hopitalizations: No Past Medical History Surgeries: Yes (cardiac catheter) Respiratory: Yes COPD Currently Using CPAP: Yes Currently Using BIPAP: No Cardiac: No Neurological: No Genitourinary: No Gastrointestinal: No Cancer: No Blood Disorders: No Adverse Reaction/Blood Tranf: No Family Medical History Reviewed Nursing Family Hx No Pertinent Family Hx Physical Exam Vital Signs Capillary Refill : General Appearance: WD/WN, no apparent distress Cardiovascular: regular rate, rhythm, no murmur Respiratory: lungs clear, normal breath sounds Skin: warm/dry, ecchymosis (right groin) Skin Problem Location: other (right groin) Skin Problem Character: other (there is ecchymosis that is trailing down from the catheter site on the right groin. Right groin has nodule at catheter insertion site but does not have pulsatile mass or expanding mass. Right leg distal pulses intact and equal and strong compared to other leg.) Progress/Results/Core Measures Progress Progress Note : Progress Note Seen and evaluated. I did discuss the case with Dr. Miner at 0033. After description of area, we both believe that this is likely just bruising and not pseudoaneurysm at this point. I did discuss with the patient about concerns for pseudoaneurysm and return precautions for that. He will follow-up with Dr. Miner or Dr. Escobar's practitioner on Friday for recheck and further evaluation. Discharged home with return precautions. Patient and family verbalize understanding instructions and agreement with plan. Departure Impression Primary Impression: Postoperative ecchymosis Disposition: 01 HOME, SELF-CARE Condition: Stable Departure-Patient Inst. Decision time for Depature: 00:47 Referrals: BEATRIS MCKEON DO (PCP) Primary Care Physician [facility]ER [facility] KANG ESCOBAR MD Patient Instructions: POST OP BLEEDING, Postoperative Pain (DC) Add. Discharge Instructions: All discharge instructions reviewed with patient and/or family. Voiced understanding. Follow-up with Dr. Escobar's office on Friday or Dr. Miner's office for recheck and further evaluation. Return for worse pain, increasing swelling, numbness, coolness or paleness of the leg, markedly increased bruising or other concerns as needed. Continue instructions per Dr. Escobar after the heart catheter as previously indicated. Copy Copies To 1: KANG ESCOBAR MD Copies To 2: SHON MINER MD FACP FACC CCDS NEPTALI CURTIS MD Jul 05, 2018 00:50
[2018-07-05 00:57] VITALS: BP 122/67
== END 2018-07-05 00:57 | disposition home or self-care (01) ==
LOC: EDUNIT# 23:09 → ER 23:11
DX: L76.32 Postprocedural hematoma of skin and subcutaneous tissue following other procedure (principal); J44.9 Chronic obstructive pulmonary disease, unspecified; Z79.51 Long term (current) use of inhaled steroids; Z79.82 Long term (current) use of aspirin; Z95.9 Presence of cardiac and vascular implant and graft, unspecified
CPT/HCPCS: 99282

== ENCOUNTER → 2019-05-12 | Outpatient (CLI) | payer BC ==
[~2019-05-12] MED LIST changes: -LISI1TAB10 PO; +LISI1TAB26 PO
--- NOTE | 2019-05-12 19:15 | Diagnostic Imaging Report ---
INDICATION: 44 pack-year history smoking. COMPARISON: 04/10/2018 TECHNIQUE: Noncontrast low-dose CT of the chest was performed per screening protocol. Auto Exposure Controls were utilized during the CT exam to meet ALARA standards for radiation dose reduction. FINDINGS: Evaluation of lung gallegos demonstrates no suspicious pulmonary nodules or masses. There is no focal consolidation, large effusion, nor pneumothorax. There is background diffuse emphysematous disease. Cardiomediastinal structures show normal heart size. There is small pericardial effusion; likely within physiologic limits. Tbkr-kh-nrbbdryx scattered calcified aortic atherosclerosis is noted. There is also mild scattered calcified coronary atherosclerotic disease. No pathologically enlarged or morphologically abnormal adenopathy is seen within the mediastinum, celia, nor axilla on this exam. Osseous structures show age-related degenerative changes. No acute bony abnormalities are seen. Included portions of the upper abdomen are unremarkable. IMPRESSION: 1. No suspicious pulmonary nodules or masses. Continued follow-up with annular low dose CT chest is recommended. 2. Background moderate emphysematous disease. 3. Calcified aortic and coronary atherosclerotic disease as described above. Lung RADS 1-S. Dictated by: Dictated on workstation # [id number]
== END ==
LOC: RAD 17:38
PROVIDERS: ATTEND Nurse Practitioner Family
DX: Z12.2 Encounter for screening for malignant neoplasm of respiratory organs (principal); J43.9 Emphysema, unspecified; I25.10 Atherosclerotic heart disease of native coronary artery without angina pectoris; I70.0 Atherosclerosis of aorta; I31.3 Pericardial effusion (noninflammatory); M89.8X9 Other specified disorders of bone, unspecified site; F17.210 Nicotine dependence, cigarettes, uncomplicated

== ENCOUNTER → 2020-05-08 | Outpatient (CLI) | payer BC ==
[~2020-05-08] MED LIST changes: +AMLO-250 PO; -AMLO5TAB9 PO; -MONT10TA24 PO; +MONT10TA97 PO; +RT-ALBUTEROL SULF 2.5 MG/3 ML PRE-MIX VIAL INH ONE
--- NOTE | 2020-05-08 15:02 | Diagnostic Imaging Report ---
EXAMINATION: CT Lung Screening. INDICATION:46 pack-year smoking history. TECHNIQUE: Noncontrast, low-dose CT imaging performed according to the lung cancer screening protocol. Auto Exposure Controls were utilize during the CT exam to meet ALARA standards for radiation dose reduction. COMPARISON:05/12/2019. FINDINGS:The previous exam of 05/12/2019 failed to show any suspicious pulmonary nodules or masses. On this exam there is still no discrete mass identified that would suggest a neoplastic process. The emphysematous changes involving both lungs seen previously are again evident and no different. There is no sign of failure, pneumonia or a pleural effusion to indicate an acute abnormality. The heart size is within normal limits. Coronary artery calcifications are noted. The aorta is not abnormally dilated. There is no obvious mediastinal or hilar adenopathy. The thyroid gland where visualized is unremarkable. The sections through the upper abdomen failed to show any sign of an acute abnormality. The bone windows are unremarkable for a fracture or for a destructive lesion. IMPRESSION: 1. The appearance of the CT chest exam is stable. There is still no lung nodule identified to suggest malignancy. A follow-up CT low-dose lung cancer screening exam in one year would be recommended for further study. 2. There are emphysematous changes involving both lungs but there is no sign of an acute abnormality. 3. There is coronary artery disease. LUNG-RADS CATEGORY:1 MODIFIER: OTHER SIGNIFICANT FINDINGS: Dictated by: Dictated on workstation # [id number]
== END ==
LOC: RT 14:04
PROVIDERS: ATTEND Nurse Practitioner Family
DX: Z12.2 Encounter for screening for malignant neoplasm of respiratory organs (principal); J43.9 Emphysema, unspecified; I25.10 Atherosclerotic heart disease of native coronary artery without angina pectoris; F17.210 Nicotine dependence, cigarettes, uncomplicated
CPT/HCPCS: 71271; 94060; 94726; 94729

== ENCOUNTER → 2020-08-07 | Outpatient (CLI) | payer BC ==
[~2020-08-07] MED LIST changes: +CATHETER FLUSH 10 ML SYR IV PRN; +HOLD METFORMIN - RECEIVED CONTRAST 20 ML VIAL IV SCH; +IOHEXOL 350 MG/ML 100 ML (OMNIPAQUE 350) VIAL IV ONE; +MONT10TA32 PO; -MONT10TA97 PO; +NS 100 ML (IVPB) BAG IV ONE; -RT-ALBUTEROL SULF 2.5 MG/3 ML PRE-MIX VIAL INH ONE
[2020-08-07 08:10] LABS: BUN/CREATININE RATIO 18; CREATININE SERUM 1.08 MG/DL (0.60-1.30); GFR ESTIMATED > 60
--- NOTE | 2020-08-07 10:26 | Diagnostic Imaging Report ---
CLINICAL INDICATION: Patient with shortness of breath. Evaluate carotids. EXAM: CT angiogram of the neck performed with 75 cc of Omnipaque 350 IV contrast. Sagittal and coronal MIP reformations were created for better visualization of vascular anatomy. Auto Exposure Controls were utilized during the CT exam to meet ALARA standards for radiation dose reduction. COMPARISON: None. FINDINGS: There is dense contrast bolus within the right subclavian vein and superior vena cava with streak artifact which obscures portions of aortic arch and proximal great vessels. A three-vessel aortic arch is seen. The brachiocephalic artery and bilateral subclavian arteries are patent. The left common carotid artery is patent without significant stenosis. There is at least 70% stenosis involving the proximal cervical left internal carotid artery due to atherosclerotic disease. Otherwise, the remainder of the cervical left ICA is patent. The right common carotid artery is patent. There is at least 70% stenosis involving the origin of the cervical right ICA. The remainder of the cervical right ICA is patent. The petrous, cavernous, and supraclinoid bilateral ICA are patent as visualized. Limited visualization of the [place] vascular structures is patent and otherwise unremarkable. 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 The bilateral cervical vertebral arteries are patent. There is atelectasis involving the posterior aspect of the right lung. Emphysematous lung disease is seen. Cervical spine vertebral body spurs are seen. IMPRESSION: 1: There is severe stenosis of the proximal bilateral cervical ICA. 2: The remainder of the CT angiogram of the neck shows no other significant stenosis, aneurysm, or dissection. 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 4: Emphysematous lung disease. Dictated by: Dictated on workstation # [id number]
== END ==
LOC: CARD 07:34
PROVIDERS: ATTEND Internal Medicine Cardiovascular Disease
DX: I35.1 Nonrheumatic aortic (valve) insufficiency (principal); I10 Essential (primary) hypertension; I65.23 Occlusion and stenosis of bilateral carotid arteries
CPT/HCPCS: 36415; 70498; 82565; 84520; 93306

== ENCOUNTER 2021-10-08 17:49 | Inpatient (IN) | payer BC ==
[~2021-10-08] VITALS: Ht 177.8 cm; Wt 91.8 kg
[~2021-10-08 17:49] MED LIST changes: -CATHETER FLUSH 10 ML SYR IV PRN; -HOLD METFORMIN - RECEIVED CONTRAST 20 ML VIAL IV SCH; -IOHEXOL 350 MG/ML 100 ML (OMNIPAQUE 350) VIAL IV ONE; -LISI1TAB26 PO; +LISI1TAB48 PO; +MONT-40 PO; -MONT10TA32 PO; -NS 100 ML (IVPB) BAG IV ONE; -POTA10TA36 PO; +POTA10TA37 PO
[2021-10-08] MEDS ORDERED: MELATONIN 3 MG TABLET PO PRN (18:00)
[2021-10-08] MEDS ORDERED: MILK OF MAGNESIA 400 MG/5 ML 30 ML UDC PO PRN (18:00)
[2021-10-08] MEDS ORDERED: ACETAMINOPHEN 325 MG TABLET PO PRN (18:00)
[2021-10-08] MEDS ORDERED: ONDANSETRON 4 MG (ZOFRAN) ORAL DISSOLVE TAB PO PRN (18:00)
[2021-10-08] MEDS ORDERED: morphine INJ 4 MG/ML 1 ML (VIAL/SYRINGE) IV PRN (18:00)
[2021-10-08] MEDS ORDERED: ANTACID SUSP 30 ML UDC (MYLANTA) PO PRN (18:00)
[2021-10-08] MEDS ORDERED: polyethylene glycoL POWDER 17 GM (MIRALAX) PACK PO PRN (18:00)
[2021-10-08] MEDS ORDERED: ONDANSETRON 4 MG/2 ML (SDV) Z0FRAN IV PRN (18:00)
[2021-10-08] MEDS ORDERED: diphenhydrAMINE 25 MG TAB (BENADRYL) PO PRN (18:00)
[2021-10-08] MEDS ORDERED: NALOXONE 0.4 MG/ML 1 ML (NARCAN) VIAL IV PRN (18:00)
[2021-10-08] MEDS ORDERED: diphenhydrAMINE 50 MG/ML INJ (BENADRYL) IVP PRN (18:00)
[2021-10-08] MEDS ORDERED: guaiFENesin/CODEINE (ROBITUSSIN AC) 10ML UDC PO PRN (18:00)
[2021-10-08] MEDS ORDERED: BISACODYL 10 MG SUPP (DULCOLAX) PR PRN (18:00)
[2021-10-08] MEDS ORDERED: NS IV 1000 ML 1,000 ML IV SCH (18:00)
[2021-10-08] MEDS ORDERED: CALCIUM CARBONATE 500 MG (TUMS) TAB.CHEW PO PRN (18:00)
[2021-10-08] MEDS ORDERED: LACTULOSE SYRUP 10GM/15ML (ENULOSE) 30ML UDC PO PRN (18:00)
[2021-10-08] MEDS ORDERED: methylPREDNISolone 125 MG (Solu-MEDROL) VIAL IVP NR (18:15)
--- NOTE | 2021-10-08 18:34 | Diagnostic Imaging Report ---
EXAM: CHEST 1 VIEW, AP/PA ONLY. INDICATION: Shortness of breath. Cough. COMPARISON: 07/01/2018. FINDINGS: Normal heart size and pulmonary vascularity. No dense consolidation, pleural effusion or pneumothorax. No acute osseous findings. No significant change. IMPRESSION: No acute cardiopulmonary findings. Dictated by: Dictated on workstation # [id number]
[2021-10-08] MEDS: CEFEPIME INJECTION 1,000 MG in NS (IVPB) 50 ML IV SCH (18:41)
[2021-10-08] MEDS: AZITHROMYCIN INJECTION 500 MG in NS (IVPB) 250 ML IV SCH (18:43)
[2021-10-08] MEDS: ENOXAPARIN 40 MG/0.4 ML (LOVENOX) SYR SC SCH (18:43)
[2021-10-08 18:47] LABS: BASOPHILS # (AUTO) 0.1 10^3/uL (0.0-0.1); BASOPHILS % (AUTO) 1 % (0-10); EOSINOPHILS # (AUTO) 0.8 10^3/uL (0.0-0.3); EOSINOPHILS % (AUTO) 8 % (0-10); HEMATOCRIT 44 % (40-54); HEMOGLOBIN 15.3 g/dL (13.3-17.7); LYMPHOCYTES # (AUTO) 2.7 10^3/uL (1.0-4.0); LYMPHOCYTES % (AUTO) 28 % (12-44); MEAN CORPUSCULAR HEMOGLOBIN 31 pg (25-34); MEAN CORPUSCULAR HGB CONC 35 g/dL (32-36); MEAN CORPUSCULAR VOLUME 91 fL (80-99); MONOCYTES # (AUTO) 0.7 10^3/uL (0.0-1.0); MONOCYTES % (AUTO) 8 % (0-12); NEUTROPHILS # (AUTO) 5.3 10^3/uL (1.8-7.8); NEUTROPHILS % (AUTO) 55 % (42-75); PLATELET COUNT 265 10^3/uL (130-400); WHITE BLOOD COUNT 9.6 10^3/uL (4.3-11.0)
[2021-10-08] MEDS ORDERED: RT-ALBUTEROL SULF 2.5 MG/3 ML PRE-MIX VIAL INH SCH (19:00)
[2021-10-08 19:01] LABS: ALBUMIN 4.2 GM/DL (3.2-4.5); CHLORIDE 101 MMOL/L (98-107); POTASSIUM 3.9 MMOL/L (3.6-5.0); SODIUM 136 MMOL/L (135-145)
[2021-10-08 19:03] LABS: GLUCOSE 93 MG/DL (70-105)
[2021-10-08 19:04] LABS: TOTAL PROTEIN 7.2 GM/DL (6.4-8.2)
[2021-10-08 19:05] LABS: BILIRUBIN,TOTAL 0.4 MG/DL (0.1-1.0); CARBON DIOXIDE 24 MMOL/L (21-32)
[2021-10-08 19:07] LABS: ALKALINE PHOSPHATASE 102 U/L (40-136); CREATININE SERUM 1.12 MG/DL (0.60-1.30); GFR ESTIMATED 74
[2021-10-08 19:08] LABS: BUN/CREATININE RATIO 14
[2021-10-08 19:10] LABS: ALANINE AMINOTRANSFERASE 35 U/L (0-55)
--- NOTE | 2021-10-08 19:48 | Tele-ICU Progress Note ---
Subjective Date Seen by a Provider: Oct 08, 2021 Time Seen by a Provider: 19:15 Subjective/Events-last exam This virtual visit was conducted using real time audio/video. Thank you for asking us to see this patient for respiratory insufficiency due to AECOPD Recent events: Direct admit from MD office. No MD records in [facility]. Improved w neb. PMH: COPD on 2LPM home O2, CPAP. DM. SH: smoking history: former FH: Non-contributory ROS: limited by patient's clinical condition, but as in HPI PE: VSS. O2 sat 98% on 2 LPM NC. HEENT: Resting comfortably, obese. No obvious masses, adenopathy or JVD. Chest: clear to auscultation. Diminished. CV: RRR S1 S2 No murmur or added sounds. Abd: Non-tender. Bowel sounds Y. : Unremarkable. Lowe N. THERMIT WELDING MACHINE OPERATOR/psychiatric: Grossly intact. No obvious focal findings. Extremities: No edema. Capillary refill < 3 seconds. Skin: unremarkable. Results: B.37/48/72 on 2 LPM. CXR: clear gallegos, hyperinflated. Available chart/ vitals / labs / images reviewed. Video assessment done using teleICU camera, rest of exam as per RN. A/P: Respiratory insufficiency: Continue present management with O@, nebs, medrol, tesnaheed terrell, mandyir. Monitor for increasing oxygenation needs and/or need for intubation. Critical Care: critically ill patient. Cont. abx, SSI, Juan Miguel. Discussed with EM Morris. Asked RN to reach out to eICU if any questions or concerns later. Time spent with patient/coordination of care with other health professionals (mins): 30 Sepsis Event Evaluation Height, Weight, BMI Height: 5'10.00" Weight: 190lbs. 0.0oz. 86.121568li; 27.3 BMI Method:Stated Focused Exam Lactate Level 10/08/21 18:42: Lactic Acid Level 1.65 Lactic Acid Level Laboratory Tests Test 10/08/21 18:42 Lactic Acid Level 1.65 MMOL/L (0.50-2.00) Exam Exam Patient acknowledged, consented, and participated in this virtual visit which was conducted using real time audio/video Vital Signs Date Time Temp Pulse Resp B/P (MAP) Pulse Ox O2 Delivery O2 Flow Rate FiO2 10/08/21 18:33 98 High Flow N/C 2.00 10/08/21 18:32 81 20 165/99 97 Nasal Cannula 2.00 10/08/21 18:14 81 Height & Weight Height: 5'10.00" Weight: 190lbs. 0.0oz. 86.155968nm; 27.3 BMI Method:Stated General Appearance: Mild Distress, Obese Peripheral Pulses: 1+ Dorsalis Pedis (R), 1+ Left Dors-Pedis (L) Results Lab Laboratory Tests 10/08/21 18:42 Assessment/Plan Assessment/Plan See free text. Critical Care: Critically Ill Patient MATHIEU BOSS MD Oct 08, 2021 19:48
[2021-10-08 19:49] VITALS: BP 165/99
[2021-10-08] MEDS ORDERED: RT-ALBUTEROL SULF 2.5 MG/3 ML PRE-MIX VIAL INH PRN (20:00)
[2021-10-08] MEDS: MONTELUKAST 10 MG (SINGULAIR) TAB PO SCH (20:31)
[2021-10-08] MEDS: BENZONATATE 100 MG (TESSALON) CAPSULE PO SCH (20:32)
--- NOTE | 2021-10-08 21:36 | Progress Note ---
Progress Note Scribe by Dolores Dunham Pt has been coughing a lot to the point where it wakes him up at night. His ribs hurt from coughing. The other day he was coughing so bad that he got dizzy and fell. Pt grunts when he breaths which have been going on for a couple of weeks. Pt has tried Mucinex but it hasn't helped at all. Pt states that he is super congested and can't stop coughing. I state that his lungs don't sound terrible but they do sound diminished. Pt feels like he has a weight on his chest. Pt was taking Zyrtec but it didn't help with allergies. Pt was in the hospital on June 11. No changes to medications or anything otherwise. Pt is taking the Breztri and Albuterol. He has been using the inhaler at night a lot and ends up in the recliner at night. Pt had a CTA of his carotid arteries in [place], they hadn't gotten any worse. His asked the pharmacy about anything that he could take other than the Mucinex and they suggested the Albuterol with steroids. I state that for the strong stuff he needs to be in the hospital and hooked up to an IV. I state that he is stacking and wearing down here so he needs to be admitted. I want him to come to [facility] so I can keep a close eye on him and make sure he is getting treated. Pt does use a CPAP at home and I am thinking that while he is in the hospital I want him on a BiPAP instead and see how he does. Patient was directly admitted to ICU from my clinic for presumed biPAP initiation. Septic w/u initiated along with IV steroids and IV abx and O2 and Nebs. Grunting and pursed lips assessed in my office. Diminished lung sounds Assessment: Acute on chronic respiratory failure likely require biPAP Former smoker quit 05/2021 CAD PVD Plan: ICU BiPAP O2 IV steroids SHYAM SANTANA DO Oct 08, 2021 21:36
[2021-10-08 23:04] VITALS: BP 99/76
[2021-10-08] MEDS: SENNOSIDES 8.6 MG (SENOKOT) TAB PO SCH (23:04)
[2021-10-08] MEDS: DOCUSATE SODIUM 100 MG (COLACE) CAP PO SCH (23:04)
[2021-10-08] MEDS: inSUlin ASPART (NovoLOG) 1 UNIT/0.01 ML (CHARGE PER UNIT) SC SCH (23:05)
[2021-10-08] MEDS: RT-ALBUTEROL SULF 2.5 MG/3 ML PRE-MIX VIAL INH SCH (23:09)
[2021-10-09] MEDS: CEFEPIME INJECTION 1,000 MG in NS (IVPB) 50 ML IV SCH ×4 (00:50→17:36)
[2021-10-09] MEDS: methylPREDNISolone 40 MG/ML (Solu-MEDROL) VIAL IV SCH ×4 (00:51→18:57)
[2021-10-09 02:32] VITALS: BP 101/48
[2021-10-09] MEDS: RT-ALBUTEROL SULF 2.5 MG/3 ML PRE-MIX VIAL INH SCH ×6 (02:32→21:42)
[2021-10-09 05:09] LABS: BASOPHILS % (AUTO) 0 % (0-10); EOSINOPHILS % (AUTO) 0 % (0-10); HEMATOCRIT 41 % (40-54); LYMPHOCYTES # (AUTO) 0.5 10^3/uL (1.0-4.0); LYMPHOCYTES % (AUTO) 8 % (12-44); MEAN CORPUSCULAR HEMOGLOBIN 31 pg (25-34); MEAN CORPUSCULAR HGB CONC 34 g/dL (32-36); MEAN CORPUSCULAR VOLUME 91 fL (80-99); MEAN PLATELET VOLUME 9.2 fL (9.0-12.2); MONOCYTES % (AUTO) 1 % (0-12); NEUTROPHILS # (AUTO) 5.8 10^3/uL (1.8-7.8); NEUTROPHILS % (AUTO) 91 % (42-75); PLATELET COUNT 236 10^3/uL (130-400); WHITE BLOOD COUNT 6.3 10^3/uL (4.3-11.0)
[2021-10-09 05:24] LABS: CALCIUM 9.7 MG/DL (8.5-10.1)
[2021-10-09 05:25] LABS: TOTAL PROTEIN 6.7 GM/DL (6.4-8.2)
[2021-10-09 05:27] LABS: BILIRUBIN,TOTAL 0.5 MG/DL (0.1-1.0)
[2021-10-09 05:28] LABS: PHOSPHORUS 2.4 MG/DL (2.3-4.7)
[2021-10-09 05:29] LABS: CREATININE SERUM 1.09 MG/DL (0.60-1.30)
[2021-10-09] MEDS ORDERED: MAGNESIUM 1 GM/100 ML IVPB 100 ML IV SCH (06:00)
[2021-10-09] MEDS ORDERED: POTASSIUM CL 10MEQ/50ML IVPB 50 ML IV SCH (06:00)
[2021-10-09] MEDS ORDERED: KCL 20 MEQ TAB (K-DUR) PO SCH (06:00)
[2021-10-09] MEDS: inSUlin ASPART (NovoLOG) 1 UNIT/0.01 ML (CHARGE PER UNIT) SC SCH ×4 (06:12→22:14)
--- NOTE | 2021-10-09 07:01 | History & Physical ---
History of Present Illness HPI/Chief Complaint CC: SOB HPI: This is a 61 yr old male with end stage COPD. He is oxygen dependent. He wears CPAP. He presented to my office with SOB. He was found to have impending respiratory failure. Admitted to the ICU for presumed BiPAP requirement. ABG reviewed showing hypoxia but no CO2 retention. IV steroids initiated along with oxygen supplementation and nebulizer treatments. Pt is currently doing much better. Overall he feels much better just a cough periodically. Source: patient, family Exam Limitations: no limitations Date Seen 10/09/21 Time Seen by a Provider: 09:30 Attending Physician Shaunna Rincon DO PCP Admitting Physician: Shaunna Rincon DO Attending Physician: Shaunna Rincon DO Referring Physician Date of Admission Oct 08, 2021 at 17:59 Home Medications & Allergies Home Medications Reviewed patient Home Medication Reconciliation performed by pharmacy medication reconciliations master automotive technician and/or nursing. Patients Allergies have been reviewed. Allergies Allergies Coded Allergies No Known Drug Allergies (Unverified10/08/21) Past Nndgrow-Wtqyyn-Aohyaj Hx Past Med/Social Hx: Reviewed Nursing Past Med/Soc Hx, Reviewed and Corrections made Patient Social History Marrital Status: Employed/Student: retired Alcohol Use: Denies Use Smoking Status: Former Smoker Type Used: Cigarettes 2nd Hand Smoke Exposure: Yes Recent Hopitalizations: No Past Medical History Respiratory: COPD, Pneumonia Currently Using CPAP: Yes Currently Using BIPAP: No Cardiac: High Cholesterol, Hypertension, Peripheral Vascular History of Blood Disorders: No Adverse Reaction to Blood Torrez: No Family History No Pertinent Family Hx Review of Systems Constitutional: see HPI, malaise, weakness EENTM: no symptoms reported Respiratory: dyspnea on exertion, short of breath, wheezing Cardiovascular: no symptoms reported Gastrointestinal: no symptoms reported Genitourinary: no symptoms reported Musculoskeletal: no symptoms reported Skin: no symptoms reported Psychiatric/Neurological: No Symptoms Reported All Other Systems Reviewed Negative Unless Noted: Yes Physical Exam Physical Exam Vital Signs Vital Signs - First Documented 10/08/21 10/08/21 10/08/21 10/08/21 10/09/21 18:10 18:14 18:32 19:49 00:00 Temp 36.6 Pulse 81 Resp 20 B/P (MAP) 165/99 Pulse Ox 98 O2 Delivery Nasal Cannula O2 Flow Rate 2.00 FiO2 40 Capillary Refill : Height, Weight, BMI Height: 5'10.00" Weight: 190lbs. 0.0oz. [id number]; 27.87 BMI Method:Stated General Appearance: Anxious, Chronically ill, Mild Distress, Obese Eyes: Bilateral Eye Normal Inspection, Bilateral Eye PERRL HEENT: PERRL/EOMI, Normal ENT Inspection, Pharynx Normal Neck: Full Range of Motion, Normal Inspection, Non Tender, Supple, Carotid Bruit Respiratory: Chest Non Tender, No Accessory Muscle Use, No Respiratory Distress, Decreased Breath Sounds, Wheezing Cardiovascular: Regular Rate, Rhythm, No Edema, No Gallop, No JVD, No Murmur, Normal Peripheral Pulses Gastrointestinal: Normal Bowel Sounds, No Organomegaly, No Pulsatile Mass, Non Tender, Soft Back: Normal Inspection, No CVA Tenderness, No Vertebral Tenderness Extremity: Normal Capillary Refill, Normal Inspection, Normal Range of Motion, Non Tender, No Calf Tenderness, No Pedal Edema Neurologic/Psychiatric: Alert, Oriented x3, No Motor/Sensory Deficits, Normal Mood/Affect Skin: Normal Color, Warm/Dry Lymphatic: No Adenopathy Results Results/Procedures Labs Laboratory Tests 10/08/21 18:42 10/09/21 04:25 Patient resulted labs reviewed. Assessment/Plan Admission Diagnosis Assessment: Acute on chronic respiratory failure AECOPD Bronchitis bacterial type Former smoker quit 05/2021 HTN HLP Carotid stenosis AJ on CPAP Plan: Move to floor out of ICU Home meds Nebs O2 Monitor closely IV steroids IV abx Admission Status: Inpatient Order (span 2 midnights) Reason for Inpatient Admission: resp failure Diagnosis/Problems Diagnosis/Problems (1) COPD exacerbation SHAUNNA RINCON DO Oct 09, 2021 07:01
--- NOTE | 2021-10-09 07:38 | Diagnostic Imaging Report ---
INDICATION: Dyspnea COMPARISON: 10/08/2021 FINDINGS: Single frontal view of the chest demonstrates normal heart size and pulmonary vascularity. The lungs are well aerated and clear. No large pleural effusion or pneumothorax is seen. The visualized osseous structures show no acute abnormalities. IMPRESSION: 1. No acute cardiopulmonary process. Dictated by: Dictated on workstation # [id number]
[2021-10-09] MEDS: BENZONATATE 100 MG (TESSALON) CAPSULE PO SCH ×3 (09:12→22:09)
[2021-10-09] MEDS: DOCUSATE SODIUM 100 MG (COLACE) CAP PO SCH ×2 (09:13→22:09)
[2021-10-09] MEDS: LORATADINE (CLARITIN) 10 MG TAB PO SCH (09:13)
[2021-10-09] MEDS: SENNOSIDES 8.6 MG (SENOKOT) TAB PO SCH ×2 (09:13→22:10)
[2021-10-09] MEDS ORDERED: ALBU2.5V4 NEB (11:17)
[2021-10-09] MEDS ORDERED: FLUT16SP22 NSEACH (11:17)
[2021-10-09] MEDS ORDERED: ASPI-1238 PO (11:17)
[2021-10-09] MEDS ORDERED: BUDE10.7 INH (11:17)
[2021-10-09] MEDS: ENOXAPARIN 40 MG/0.4 ML (LOVENOX) SYR SC SCH (17:32)
[2021-10-09] MEDS: AZITHROMYCIN INJECTION 500 MG in NS (IVPB) 250 ML IV SCH (17:34)
[2021-10-09] MEDS ORDERED: MONTELUKAST 10 MG (SINGULAIR) TAB PO SCH (21:00)
[2021-10-09] MEDS ORDERED: NON-FORMULARY MEDICATION 1 EA EA (Budesonide/Glycopyr/Formoterol (Breztri Aerosphere Inhal INH SCH (21:00)
[2021-10-09] MEDS: MONTELUKAST 10 MG (SINGULAIR) TAB PO SCH (22:09)
[2021-10-09] MEDS: amLODIPine 5 MG (NORVASC) TAB PO SCH (22:09)
[2021-10-09] MEDS: BREZTRI 160/9/4.8 MCG INHALER PO SCH (22:10)
[2021-10-09] MEDS: ASPIRIN E.C. 81 MG (ECOTRIN) TAB PO SCH (22:10)
[2021-10-10] MEDS: methylPREDNISolone 40 MG/ML (Solu-MEDROL) VIAL IV SCH ×4 (01:05→21:14)
[2021-10-10] MEDS: CEFEPIME INJECTION 1,000 MG in NS (IVPB) 50 ML IV SCH ×5 (01:05→23:59)
[2021-10-10] MEDS: RT-ALBUTEROL SULF 2.5 MG/3 ML PRE-MIX VIAL INH SCH ×5 (02:24→18:38)
[2021-10-10 05:46] LABS: BASOPHILS % (AUTO) 0 % (0-10); EOSINOPHILS % (AUTO) 0 % (0-10); HEMATOCRIT 39 % (40-54); HEMOGLOBIN 13.4 g/dL (13.3-17.7); LYMPHOCYTES # (AUTO) 0.6 10^3/uL (1.0-4.0); LYMPHOCYTES % (AUTO) 3 % (12-44); MEAN CORPUSCULAR HEMOGLOBIN 32 pg (25-34); MEAN CORPUSCULAR HGB CONC 34 g/dL (32-36); MEAN CORPUSCULAR VOLUME 92 fL (80-99); MEAN PLATELET VOLUME 9.1 fL (9.0-12.2); MONOCYTES # (AUTO) 0.2 10^3/uL (0.0-1.0); MONOCYTES % (AUTO) 1 % (0-12); NEUTROPHILS # (AUTO) 18.1 10^3/uL (1.8-7.8); NEUTROPHILS % (AUTO) 95 % (42-75); PLATELET COUNT 241 10^3/uL (130-400)
--- NOTE | 2021-10-10 05:57 | Progress Note ---
Subjective Date Seen by a Provider: Oct 10, 2021 Time Seen by a Provider: 09:00 Subjective/Events-last exam Pt is doing a lot better Less cough, grunting, and SOB Decreasing IV steroid frequency to q12 hours Ambulating Will discontinue telemetry Review of Systems Pulmonary: Dyspnea, Cough Focused Exam Lactate Level 10/08/21 18:42: Lactic Acid Level 1.65 Objective Exam Last Set of Vital Signs Vital Signs Date Time Temp Pulse Resp B/P (MAP) Pulse Ox O2 Delivery O2 Flow Rate FiO2 10/10/21 04:29 36.9 101 20 153/84 96 NIV CPAP 2.50 10/09/21 00:00 40 Capillary Refill : I&O Intake and Output 10/10/21 00:00 Intake Total 2175 ml Output Total 1175 ml Balance 1000 ml Intake Oral 2125 ml IV Total 50 ml Output Urine Total 1175 ml # Voids 9 # Bowel Movements 1 General: Alert, Oriented X3, Cooperative, No Acute Distress Lungs: Clear to Auscultation, Normal Air Movement, Other (diminished) Heart: Regular Rate, Normal S1, Normal S2, No Murmurs Neuro: Normal Gait, Normal Speech, Strength at 5/5 X4 Ext, Normal Tone Psych/Mental Status: Mental Status NL, Mood NL Results Lab Laboratory Tests 10/09/21 11:45: Glucometer 212H 10/09/21 15:31: Glucometer 163H 10/09/21 20:22: Glucometer 169H 10/10/21 05:23: Glucometer 167H 10/10/21 05:24: White Blood Count 19.0H, Red Blood Count 4.25L, Hemoglobin 13.4, Hematocrit 39L, Mean Corpuscular Volume 92, Mean Corpuscular Hemoglobin 32, Mean Corpuscular Hemoglobin Concent 34, Red Cell Distribution Width 13.0, Platelet Count 241, Mean Platelet Volume 9.1, Immature Granulocyte % (Auto) 0, Neutrophils (%) (Auto) 95H, Lymphocytes (%) (Auto) 3L, Monocytes (%) (Auto) 1, Eosinophils (%) (Auto) 0, Basophils (%) (Auto) 0, Neutrophils # (Auto) 18.1H, Lymphocytes # (Auto) 0.6L, Monocytes # (Auto) 0.2, Eosinophils # (Auto) 0.0, Basophils # (Auto) 0.0, Immature Granulocyte # (Auto) 0.1 Microbiology 10/08/21 MRSA Screen - Final, Complete MRSA not isolated 10/08/21 Blood Culture - Preliminary, Resulted No growth Assessment/Plan Assessment/Plan Assess & Plan/Chief Complaint Assessment: Acute on chronic respiratory failure AECOPD Bronchitis bacterial type Former smoker quit 05/2021 HTN HLP Carotid stenosis AJ on CPAP Plan: Move to floor out of ICU Home meds Nebs O2 Monitor closely IV steroids IV abx 10/10/21: DC Tely Decrease steroids Diagnosis/Problems Diagnosis/Problems (1) COPD exacerbation SHYAM SANTANA DO Oct 10, 2021 05:57
[2021-10-10 06:11] LABS: ALBUMIN 3.9 GM/DL (3.2-4.5); POTASSIUM 4.2 MMOL/L (3.6-5.0)
[2021-10-10 06:12] LABS: CALCIUM 9.7 MG/DL (8.5-10.1)
[2021-10-10 06:14] LABS: TOTAL PROTEIN 6.5 GM/DL (6.4-8.2)
[2021-10-10 06:15] LABS: BILIRUBIN,TOTAL 0.3 MG/DL (0.1-1.0)
[2021-10-10 06:17] LABS: CREATININE SERUM 0.96 MG/DL (0.60-1.30)
[2021-10-10 06:19] LABS: LYMPHOCYTES % (MANUAL) 6 %; MONOCYTES % (MANUAL) 2 %; NEUTROPHILS % (MANUAL) 92 %; RBC MORPH NORMAL
[2021-10-10 06:20] LABS: MAGNESIUM 2.3 MG/DL (1.6-2.4)
[2021-10-10] MEDS: inSUlin ASPART (NovoLOG) 1 UNIT/0.01 ML (CHARGE PER UNIT) SC SCH ×4 (06:22→21:15)
[2021-10-10] MEDS: KCL 20 MEQ TAB (K-DUR) PO SCH (06:22)
[2021-10-10] MEDS: BREZTRI 160/9/4.8 MCG INHALER PO SCH ×2 (07:30→21:16)
[2021-10-10 07:39] VITALS: BP 121/74
[2021-10-10] MEDS: LORATADINE (CLARITIN) 10 MG TAB PO SCH (08:41)
[2021-10-10] MEDS: lisINopril 20 MG (PRINIVIL) TABLET PO SCH (08:41)
[2021-10-10] MEDS: DOCUSATE SODIUM 100 MG (COLACE) CAP PO SCH ×2 (08:41→21:17)
[2021-10-10] MEDS: BENZONATATE 100 MG (TESSALON) CAPSULE PO SCH ×3 (08:41→21:14)
[2021-10-10] MEDS: SENNOSIDES 8.6 MG (SENOKOT) TAB PO SCH ×2 (08:41→21:17)
[2021-10-10] MEDS: FLUTICASONE NASAL SPRAY (FLONASE) 16 GM BTL NS SCH (10:19)
[2021-10-10 11:28] VITALS: BP 125/78
[2021-10-10 16:27] VITALS: BP 125/58
[2021-10-10] MEDS ORDERED: AZITHROMYCIN 250 MG TAB (ZITHROMAX) PO SCH (18:00)
[2021-10-10] MEDS: ENOXAPARIN 40 MG/0.4 ML (LOVENOX) SYR SC SCH (18:09)
[2021-10-10 19:42] VITALS: BP 120/63
[2021-10-10] MEDS: amLODIPine 5 MG (NORVASC) TAB PO SCH (21:14)
[2021-10-10] MEDS: ASPIRIN E.C. 81 MG (ECOTRIN) TAB PO SCH (21:14)
[2021-10-10] MEDS: MONTELUKAST 10 MG (SINGULAIR) TAB PO SCH (21:14)
[2021-10-10 23:42] VITALS: BP 119/58
[2021-10-11] MEDS: RT-ALBUTEROL SULF 2.5 MG/3 ML PRE-MIX VIAL INH SCH ×3 (01:51→10:41)
[2021-10-11 03:52] VITALS: BP 113/58
[2021-10-11] MEDS: KCL 20 MEQ TAB (K-DUR) PO SCH (05:56)
[2021-10-11] MEDS: inSUlin ASPART (NovoLOG) 1 UNIT/0.01 ML (CHARGE PER UNIT) SC SCH ×2 (05:56→12:01)
[2021-10-11] MEDS: CEFEPIME INJECTION 1,000 MG in NS (IVPB) 50 ML IV SCH ×2 (05:57→12:10)
[2021-10-11 06:12] LABS: BASOPHILS % (AUTO) 0 % (0-10); EOSINOPHILS % (AUTO) 0 % (0-10); HEMATOCRIT 41 % (40-54); HEMOGLOBIN 13.9 g/dL (13.3-17.7); LYMPHOCYTES # (AUTO) 0.8 10^3/uL (1.0-4.0); LYMPHOCYTES % (AUTO) 4 % (12-44); MEAN CORPUSCULAR HEMOGLOBIN 32 pg (25-34); MEAN CORPUSCULAR HGB CONC 34 g/dL (32-36); MEAN CORPUSCULAR VOLUME 92 fL (80-99); MEAN PLATELET VOLUME 9.1 fL (9.0-12.2); MONOCYTES # (AUTO) 0.4 10^3/uL (0.0-1.0); MONOCYTES % (AUTO) 2 % (0-12); NEUTROPHILS # (AUTO) 17.8 10^3/uL (1.8-7.8); NEUTROPHILS % (AUTO) 93 % (42-75); PLATELET COUNT 263 10^3/uL (130-400); WHITE BLOOD COUNT 19.1 10^3/uL (4.3-11.0)
[2021-10-11 06:33] LABS: POTASSIUM 4.1 MMOL/L (3.6-5.0)
[2021-10-11 06:35] LABS: CALCIUM 9.8 MG/DL (8.5-10.1)
[2021-10-11 06:36] LABS: TOTAL PROTEIN 6.8 GM/DL (6.4-8.2)
[2021-10-11 06:37] LABS: BILIRUBIN,TOTAL 0.4 MG/DL (0.1-1.0)
[2021-10-11 06:39] LABS: CREATININE SERUM 1.04 MG/DL (0.60-1.30)
[2021-10-11 06:42] LABS: MAGNESIUM 2.5 MG/DL (1.6-2.4)
[2021-10-11] MEDS: BREZTRI 160/9/4.8 MCG INHALER PO SCH (07:26)
[2021-10-11] MEDS: lisINopril 20 MG (PRINIVIL) TABLET PO SCH (08:03)
[2021-10-11] MEDS: LORATADINE (CLARITIN) 10 MG TAB PO SCH (08:03)
[2021-10-11] MEDS: DOCUSATE SODIUM 100 MG (COLACE) CAP PO SCH ×2 (08:03→08:09)
[2021-10-11] MEDS: BENZONATATE 100 MG (TESSALON) CAPSULE PO SCH ×2 (08:03→12:10)
[2021-10-11] MEDS: SENNOSIDES 8.6 MG (SENOKOT) TAB PO SCH ×2 (08:03→08:09)
[2021-10-11] MEDS: methylPREDNISolone 40 MG/ML (Solu-MEDROL) VIAL IV SCH (08:04)
[2021-10-11] MEDS: FLUTICASONE NASAL SPRAY (FLONASE) 16 GM BTL NS SCH (08:04)
[2021-10-11 08:40] VITALS: BP 146/67
[2021-10-11 11:30] VITALS: BP 114/59
[2021-10-11] MEDS ORDERED: AZIT250T12 PO (11:41)
[2021-10-11] MEDS ORDERED: GFCD10B PO (11:41)
[2021-10-11] MEDS ORDERED: BENZ100C18 PO (11:41)
[2021-10-11] MEDS ORDERED: PRED10TA22 PO (11:41)
[2021-10-11] MEDS ORDERED: LORA10TA7 PO (11:41)
[2021-10-11] MEDS ORDERED: CEFD300C3 PO (11:41)
--- NOTE | 2021-10-11 11:44 | Discharge Summary ---
Diagnosis/Chief Complaint Date of Admission Oct 08, 2021 at 17:59 Date of Discharge Discharge Date: Oct 11, 2021 Discharge Diagnosis Assessment: Acute on chronic respiratory failure AECOPD Bronchitis bacterial type Former smoker quit 05/2021 HTN HLP Carotid stenosis AJ on CPAP Plan: Move to floor out of ICU Home meds Nebs O2 Monitor closely IV steroids IV abx 10/10/21: DC Tely Decrease steroids Discharge Summary Discharge Physical Examination Allergies: Coded Allergies: No Known Drug Allergies (Unverified , 10/08/21) Vitals & I&Os Vital Signs Date Time Temp Pulse Resp B/P (MAP) Pulse Ox O2 Delivery O2 Flow Rate FiO2 10/11/21 13:18 10/11/21 11:30 36.5 80 20 94 Nasal Cannula 2.00 10/09/21 00:00 40 General Appearance: Alert, Oriented X3, Cooperative Respiratory: Clear to Auscultation Cardiovascular: Regular Rate Neuro: Normal Gait, Normal Speech, Strength at 5/5 X4 Ext Psych/Mental Status: Mental Status NL Hospital Course Was the Problem List Reviewed?: Yes Pt had an uneventful 4 day hospital course after he was directly admitted from my office for exacerbation of COPD and impending respiratory failure. He did not require BiPAP but did require nebulizer treatment, oxygen supplementation, and his home CPAP machine. Overall he responded to aggressive IV steroids and IV antibiotics for bronchitis. He was deemed stable for discharge in improved condition. Labs (last 24 hrs) Laboratory Tests 10/08/21 17:54: B-Type Natriuretic Peptide < 10.0 10/08/21 18:20: Influenza Type A (RT-PCR) Not Detected, Influenza Type B (RT-PCR) Not Detected, SARS-CoV-2 RNA (RT-PCR) Not Detected 10/08/21 18:32: Bedside Blood Gas pH (LAB) 7.370, Bedside Blood Gas pCO2 (LAB) 48.0, Bedside Blood Gas pO2 (LAB) 72L, Bedside Blood Gas HCO3 (LAB) 27.7, POC Blood Gas Total CO2 Calc 29, Bedside Bl Gas O2 Saturation (Calc) 94L, Bedside Arterial Blood Base Excess 2 10/08/21 18:42: White Blood Count 9.6, Red Blood Count 4.87, Hemoglobin 15.3, Hematocrit 44, Mean Corpuscular Volume 91, Mean Corpuscular Hemoglobin 31, Mean Corpuscular Hemoglobin Concent 35, Red Cell Distribution Width 12.7, Platelet Count 265, Mean Platelet Volume 9.0, Immature Granulocyte % (Auto) 0, Neutrophils (%) (Auto) 55, Lymphocytes (%) (Auto) 28, Monocytes (%) (Auto) 8, Eosinophils (%) (Auto) 8, Basophils (%) (Auto) 1, Neutrophils # (Auto) 5.3, Lymphocytes # (Auto) 2.7, Monocytes # (Auto) 0.7, Eosinophils # (Auto) 0.8H, Basophils # (Auto) 0.1, Immature Granulocyte # (Auto) 0.0, D-Dimer 0.46, Sodium Level 136, Potassium Level 3.9, Chloride Level 101, Carbon Dioxide Level 24, Anion Gap 11, Blood Urea Nitrogen 16, Creatinine 1.12, Estimat Glomerular Filtration Rate 74, BUN/Creatinine Ratio 14, Glucose Level 93, Lactic Acid Level 1.65, Calcium Level 10.0, Corrected Calcium 9.8, Total Bilirubin 0.4, Aspartate Amino Transf (AST/SGOT) 28, Alanine Aminotransferase (ALT/SGPT) 35, Alkaline Phosphatase 102, Troponin I < 0.028, Total Protein 7.2, Albumin 4.2, Procalcitonin 0.02 10/09/21 04:25: White Blood Count 6.3, Red Blood Count 4.55, Hemoglobin 14.0, Hematocrit 41, Mean Corpuscular Volume 91, Mean Corpuscular Hemoglobin 31, Mean Corpuscular Hemoglobin Concent 34, Red Cell Distribution Width 12.6, Platelet Count 236, Mean Platelet Volume 9.2, Immature Granulocyte % (Auto) 0, Neutrophils (%) (Auto) 91H, Lymphocytes (%) (Auto) 8L, Monocytes (%) (Auto) 1, Eosinophils (%) (Auto) 0, Basophils (%) (Auto) 0, Neutrophils # (Auto) 5.8, Lymphocytes # (Auto) 0.5L, Monocytes # (Auto) 0.0, Eosinophils # (Auto) 0.0, Basophils # (Auto) 0.0, Immature Granulocyte # (Auto) 0.0, Sodium Level 135, Potassium Level 4.0, Chloride Level 102, Carbon Dioxide Level 22, Anion Gap 11, Blood Urea Nitrogen 21H, Creatinine 1.09, Estimat Glomerular Filtration Rate 77, BUN/Creatinine Ratio 19, Glucose Level 170H, Calcium Level 9.7, Corrected Calcium 9.7, Phosphorus Level 2.4, Magnesium Level 2.0, Total Bilirubin 0.5, Aspartate Amino Transf (AST/SGOT) 22, Alanine Aminotransferase (ALT/SGPT) 32, Alkaline Phosphatase 85, Total Protein 6.7, Albumin 4.0 10/09/21 05:01: Bedside Blood Gas pH (LAB) 7.394, Bedside Blood Gas pCO2 (LAB) 41.1, Bedside Blood Gas pO2 (LAB) 67L, Bedside Blood Gas HCO3 (LAB) 25.1, POC Blood Gas Total CO2 Calc 26, Bedside Bl Gas O2 Saturation (Calc) 93L, Bedside Arterial Blood Base Excess 0 10/09/21 11:45: Glucometer 212H 10/09/21 15:31: Glucometer 163H 10/09/21 20:22: Glucometer 169H 10/10/21 05:23: Glucometer 167H 10/10/21 05:24: White Blood Count 19.0H, Red Blood Count 4.25L, Hemoglobin 13.4, Hematocrit 39L, Mean Corpuscular Volume 92, Mean Corpuscular Hemoglobin 32, Mean Corpuscular Hemoglobin Concent 34, Red Cell Distribution Width 13.0, Platelet Count 241, Mean Platelet Volume 9.1, Immature Granulocyte % (Auto) 0, Neutrophils (%) (Auto) 95H, Lymphocytes (%) (Auto) 3L, Monocytes (%) (Auto) 1, Eosinophils (%) (Auto) 0, Basophils (%) (Auto) 0, Neutrophils # (Auto) 18.1H, Lymphocytes # (Auto) 0.6L, Monocytes # (Auto) 0.2, Eosinophils # (Auto) 0.0, Basophils # (Auto) 0.0, Immature Granulocyte # (Auto) 0.1, Neutrophils % (Manual) 92, Lymphocytes % (Manual) 6, Monocytes % (Manual) 2, Blood Morphology Comment NORMAL, Sodium Level 140, Potassium Level 4.2, Chloride Level 107, Carbon Robbi xide Level 22, Anion Gap 11, Blood Urea Nitrogen 23H, Creatinine 0.96, Estimat Glomerular Filtration Rate 89, BUN/Creatinine Ratio 24, Glucose Level 173H, Calcium Level 9.7, Corrected Calcium 9.8, Magnesium Level 2.3, Total Bilirubin 0.3, Aspartate Amino Transf (AST/SGOT) 18, Alanine Aminotransferase (ALT/SGPT) 29, Alkaline Phosphatase 90, Total Protein 6.5, Albumin 3.9 10/10/21 10:16: Glucometer 222H 10/10/21 15:16: Glucometer 150H 10/10/21 19:50: Glucometer 202H 10/11/21 05:41: Glucometer 162H 10/11/21 06:09: White Blood Count 19.1H, Red Blood Count 4.41, Hemoglobin 13.9, Hematocrit 41, Mean Corpuscular Volume 92, Mean Corpuscular Hemoglobin 32, Mean Corpuscular Hemoglobin Concent 34, Red Cell Distribution Width 13.1, Platelet Count 263, Mean Platelet Volume 9.1, Immature Granulocyte % (Auto) 1, Neutrophils (%) ( Auto) 93H, Lymphocytes (%) (Auto) 4L, Monocytes (%) (Auto) 2, Eosinophils (%) (Auto) 0, Basophils (%) (Auto) 0, Neutrophils # (Auto) 17.8H, Lymphocytes # (Auto) 0.8L, Monocytes # (Auto) 0.4, Eosinophils # (Auto) 0.0, Basophils # (Auto) 0.0, Immature Granulocyte # (Auto) 0.1, Sodium Level 139, Potassium Level 4.1, Chloride Level 104, Carbon Dioxide Level 22, Anion Gap 13, Blood Urea Nitrogen 27H, Creatinine 1.04, Estimat Glomerular Filtration Rate 81, BUN/Creatinine Ratio 26, Glucose Level 141H, Calcium Level 9.8, Corrected Calcium 9.8, Magnesium Level 2.5H, Total Bilirubin 0.4, Aspartate Amino Transf (AST/SGOT) 19, Alanine Aminotransferase (ALT/SGPT) 36, Alkaline Phosphatase 83, Total Protein 6.8, Albumin 4.0 10/11/21 07:52: Glucometer 144H 10/11/21 11:11: Glucometer 141H Microbiology 10/08/21 MRSA Screen - Final, Complete MRSA not isolated 10/08/21 Blood Culture - Preliminary, Resulted No growth Pending Labs Microbiology Date/Time Source Procedure Growth Status 10/08/21 18:20 Nasal MRSA Screen - Final MRSA not isolated Complete 10/08/21 18:00 Peripheral Lt Ac Blood Culture - Preliminary No growth Resulted 10/08/21 18:00 Peripheral Iv/Heplock Blood Culture - Preliminary No growth Resulted Laboratory Tests 10/08/21 17:54: B-Type Natriuretic Peptide < 10.0 10/08/21 18:20: Influenza Type A (RT-PCR) Not Detected, Influenza Type B (RT-PCR) Not Detected, SARS-CoV-2 RNA (RT-PCR) Not Detected 10/08/21 18:32: Bedside Blood Gas pH (LAB) 7.370, Bedside Blood Gas pCO2 (LAB) 48.0, Bedside Blood Gas pO2 (LAB) 72, Bedside Blood Gas HCO3 (LAB) 27.7, POC Blood Gas Total CO2 Calc 29, Bedside Bl Gas O2 Saturation (Calc) 94, Bedside Arterial Blood Base Excess 2 10/08/21 18:42: White Blood Count 9.6, Red Blood Count 4.87, Hemoglobin 15.3, Hematocrit 44, Mean Corpuscular Volume 91, Mean Corpuscular Hemoglobin 31, Mean Corpuscular Hem oglobin Concent 35, Red Cell Distribution Width 12.7, Platelet Count 265, Mean Platelet Volume 9.0, Immature Granulocyte % (Auto) 0, Neutrophils (%) (Auto) 55, Lymphocytes (%) (Auto) 28, Monocytes (%) (Auto) 8, Eosinophils (%) (Auto) 8, Basophils (%) (Auto) 1, Neutrophils # (Auto) 5.3, Lymphocytes # (Auto) 2.7, Monocytes # (Auto) 0.7, Eosinophils # (Auto) 0.8, Basophils # (Auto) 0.1, Immature Granulocyte # (Auto) 0.0, D-Dimer 0.46, Sodium Level 136, Potassium Level 3.9, Chloride Level 101, Carbon Dioxide Level 24, Anion Gap 11, Blood Urea Nitrogen 16, Creatinine 1.12, Estimat Glomerular Filtration Rate 74, BUN/Creatinine Ratio 14, Glucose Level 93, Lactic Acid Level 1.65, Calcium Level 10.0, Corrected Calcium 9.8, Total Bilirubin 0.4, Aspartate Amino Transf (AST/SGOT) 28, Alanine Aminotransferase (ALT/SGPT) 35, Alkaline Phosphatase 102, Troponin I < 0.028, Total Protein 7.2, Albumin 4.2, Procalcitonin 0.02 10/09/21 04:25: White Blood Count 6.3, Red Blood Count 4.55, Hemoglobin 14.0, Hematocrit 41, Mean Corpuscular Volume 91, Mean Corpuscular Hemoglobin 31, Mean Corpuscular Hemoglobin Concent 34, Red Cell Distribution Width 12.6, Platelet Count 236, Mean Platelet Volume 9.2, Immature Granulocyte % (Auto) 0, Neutrophils (%) (Auto) 91, Lymphocytes (%) (Auto) 8, Monocytes (%) (Auto) 1, Eosinophils (%) (Auto) 0, Basophils (%) (Auto) 0, Neutrophils # (Auto) 5.8, Lymphocytes # (Auto) 0.5, Monocytes # (Auto) 0.0, Eosinophils # (Auto) 0.0, Basophils # (Auto) 0.0, Immature Granulocyte # (Auto) 0.0, Sodium Level 135, Potassium Level 4.0, Chloride Level 102, Carbon Dioxide Level 22, Anion Gap 11, Blood Urea Nitrogen 21, Creatinine 1.09, Estimat Glomerular Filtration Rate 77, BUN/Creatinine Ratio 19, Glucose Level 170, Calcium Level 9.7, Corrected Calcium 9.7, Phosphorus Level 2.4, Magnesium Level 2.0, Total Bilirubin 0.5, Aspartate Amino Transf (AST/SGOT) 22, Alanine Aminotransferase (ALT/SGPT) 32, Alkaline Phosphatase 85, Total Protein 6.7, Albumin 4.0 10/09/21 05:01: Bedside Blood Gas pH (LAB) 7.394, Bedside Blood Gas pCO2 (LAB) 41.1, Bedside Blood Gas pO2 (LAB) 67, Bedside Blood Gas HCO3 (LAB) 25.1, POC Blood Gas Total CO2 Calc 26, Bedside Bl Gas O2 Saturation (Calc) 93, Bedside Arterial Blood Base Excess 0 10/09/21 11:45: Glucometer 212 10/09/21 15:31: Glucometer 163 10/09/21 20:22: Glucometer 169 10/10/21 05:23: Glucometer 167 10/10/21 05:24: White Blood Count 19.0, Red Blood Count 4.25, Hemoglobin 13.4, Hematocrit 39, Mean Corpuscular Volume 92, Mean Corpuscular Hemoglobin 32, Mean Corpuscular Hemoglobin Concent 34, Red Cell Distribution Width 13.0, Platelet Count 241, Mean Platelet Volume 9.1, Immature Granulocyte % (Auto) 0, Neutrophils (%) (Auto) 95, Lymphocytes (%) (Auto) 3, Monocytes (%) (Auto) 1, Eosinophils (%) (Auto) 0, Basophils (%) (Auto) 0, Neutrophils # (Auto) 18.1, Lymphocytes # (Auto) 0.6, Monocytes # (Auto) 0.2, Eosinophils # (Auto) 0.0, Basophils # (Auto) 0.0, Immature Granulocyte # (Auto) 0.1, Neutrophils % (Manual) 92, Lymphocytes % (Manual) 6, Monocytes % (Manual) 2, Blood Morphology Comment NORMAL, Sodium Level 140, Potassium Level 4.2, Chloride Level 107, Carbon Dioxide Level 22, Anion Gap 11, Blood Urea Nitrogen 23, Creatinine 0.96, Estimat Glomerular Filtration Rate 89, BUN/Creatinine Ratio 24, Glucose Level 173, Calcium Level 9.7, Corrected Calcium 9.8, Magnesium Level 2.3, Total Bilirubin 0.3, Aspartate Amino Transf (AST/SGOT) 18, Alanine Aminotransferase (ALT/SGPT) 29, Alkaline Phosphatase 90, Total Protein 6.5, Albumin 3.9 10/10/21 10:16: Glucometer 222 10/10/21 15:16: Glucometer 150 10/10/21 19:50: Glucometer 202 10/11/21 05:41: Glucometer 162 10/11/21 06:09: White Blood Count 19.1, Red Blood Count 4.41, Hemoglobin 13.9, Hematocrit 41, Mean Corpuscular Volume 92, Mean Corpuscular Hemoglobin 32, Mean Corpuscular Hemoglobin Concent 34, Red Cell Distribution Width 13.1, Platelet Count 263, Mean Platelet Volume 9.1, Immature Granulocyte % (Auto) 1, Neutrophils (%) (Auto) 93, Lymphocytes (%) (Auto) 4, Monocytes (%) (Auto) 2, Eosinophils (%) (Auto) 0, Basophils (%) (Auto) 0, Neutrophils # (Auto) 17.8, Lymphocytes # ( Auto) 0.8, Monocytes # (Auto) 0.4, Eosinophils # (Auto) 0.0, Basophils # (Auto) 0.0, Immature Granulocyte # (Auto) 0.1, Sodium Level 139, Potassium Level 4.1, Chloride Level 104, Carbon Dioxide Level 22, Anion Gap 13, Blood Urea Nitrogen 27, Creatinine 1.04, Estimat Glomerular Filtration Rate 81, BUN/Creatinine Ratio 26, Glucose Level 141, Calcium Level 9.8, Corrected Calcium 9.8, Magnesium Level 2.5, Total Bilirubin 0.4, Aspartate Amino Transf (AST/SGOT) 19, Alanine Aminotransferase (ALT/SGPT) 36, Alkaline Phosphatase 83, Total Protein 6.8, Albumin 4.0 10/11/21 07:52: Glucometer 144 10/11/21 11:11: Glucometer 141 Discharge Home Medications: Active Scripts Active Prednisone 10 Mg Tab.ds.pk 10 Mg PO DAILY Take 6 tabs(60mg)daily,decrease by 1 tab(10mg)every other day and remain on 10mg daily once taper completed Tessalon Perles (Benzonatate) 100 Mg Capsule 200 Mg PO TID Cefdinir 300 Mg Capsule 300 Mg PO BID Azithromycin 250 Mg Tablet 250 Mg PO DAILY@1800 Loratadine 10 Mg Tablet 10 Mg PO DAILY Reported Fluticasone Propionate 50 Mcg/Actuation [place].susp 1 [place] NSEACH DAILY Breztri Aerosphere Inhaler (Budesonide/Glycopyr/Formoterol) 160 Mcg-9 Mcg-4.8 Mcg/Actuation Hfa.aer.ad 2 Puff INH BID Albuterol Sulfate 2.5 Mg/3 Ml (0.083 %) Vial.neb 3 Ml NEB TID Aspirin EC (Aspirin) 81 Mg Tablet.dr 81 Mg PO HS Ventolin Hfa (Albuterol Sulfate) 1 Puff Puff 2 Puff INH Q6H PRN Montelukast Sodium 10 Mg Tablet 10 Mg PO HS Amlodipine Besylate 5 Mg Tablet 5 Mg PO HS Lisinopril-Hctz 20-25 mg Tab (Lisinopril/Hydrochlorothiazide) 1 Each Tablet 1 Each PO DAILY Potassium Chloride 10 Meq Tab.er.prt 20 Meq PO DAILY TAKES 2 (10MEQ) TABS Simvastatin 80 Mg Tablet 80 Mg PO HS Instructions to patient/family Please see electronic discharge instructions given to patient. Diagnosis/Problems Diagnosis/Problems (1) COPD exacerbation SHYAM SANTANA DO Oct 11, 2021 11:44
== END 2021-10-11 13:34 | disposition home or self-care (01) | DRG 189 ==
LOC: ICU 17:59 → 4TH 10-09 11:56
PROVIDERS: ADMIT Internal Medicine; ATTEND Internal Medicine
PROC: 5A0935A Assistance with Respiratory Ventilation, Less than 24 Consecutive Hours, High Flow/Velocity Cannula (ICD-10-PCS; principal; 2021-10-08)
PROC: 5A09357 Assistance with Respiratory Ventilation, Less than 24 Consecutive Hours, Continuous Positive Airway Pressure (ICD-10-PCS; 2021-10-09)
DX: J96.20 Acute and chronic respiratory failure, unspecified whether with hypoxia or hypercapnia (principal); J44.1 Chronic obstructive pulmonary disease with (acute) exacerbation; J44.0 Chronic obstructive pulmonary disease with (acute) lower respiratory infection; Z87.891 Personal history of nicotine dependence; Z99.81 Dependence on supplemental oxygen; I25.10 Atherosclerotic heart disease of native coronary artery without angina pectoris; I73.9 Peripheral vascular disease, unspecified; E78.00 Pure hypercholesterolemia, unspecified; I10 Essential (primary) hypertension; G47.33 Obstructive sleep apnea (adult) (pediatric); I65.29 Occlusion and stenosis of unspecified carotid artery; J20.9 Acute bronchitis, unspecified; Z20.822 Contact with and (suspected) exposure to COVID-19
CPT/HCPCS: 36415; 71045; 80053; 82805; 82947; 83605; 83735; 83880; 84100; 84145; 84484; 85007; 85025; 85027; 85379; 87040; 87081; 87636; 93005; 94640; 94660; 94760